=== PATIENT | male | born 1960 | race Caucasian/White ===

== ENCOUNTER 2020-03-07 09:39 | Emergency (ER) | payer BC ==
[2020-03-07] MEDS ORDERED: MORPHINE SULFATE 4 MG INJ IV ONE ×2 (10:03→10:37)
[2020-03-07] MEDS ORDERED: Zofran 4 MG/2 ML VIAL IV ONE (10:03)
[2020-03-07] MEDS ORDERED: Sodium Chloride 0.9% 1000 ML 1,000 ML IV STA (10:03)
--- NOTE | 2020-03-07 10:05 | ERPHSYRPT ---
- History of Present Illness Time Seen by Provider: 03/07/20 10:00 Historian: patient Exam Limitations: no limitations Patient Subjective Stated Complaint: Pt states "About an hour and a half ago I started to have left side pain. I am nauseated as well." Triage Nursing Assessment: Pt presented alert and oriented X 3, skin pwd Pt ambulates with a slow hunched over gait. Pt vomited X 3, no apparent respiratory distress. Physician History: 59 years old male with history of hypertension presented in the ER with sudden onset left flank pain almost hour and a half ago after he finished urination and felt stinging/burning sensation at the tip of penis as well. Moderate to severe intensity, sharp shooting in nature, aggravated with movements and palpation and no significant relieving factors, associated with nausea and 3-4 episodes of nonprojectile, nonbilious vomiting. Patient does have a remote history of kidney stone. Denies any fever or chills. Timing/Duration: today, sudden, worse Quality: sharpness Abdominal Pain Onset Location: LLQ, flank Pain Radiation: no radiation Severity of Pain-Max: severe Severity of Pain-Current: severe Modifying Factors: Improves With: movement Associated Symptoms: nausea, vomiting Allergies/Adverse Reactions: Penicillins Allergy (Severe, Verified 03/07/20 09:58) Swelling Home Medications: Olmesartan Medoxomil 40 mg PO DAILY 03/07/20 [History] Zolpidem Tartrate 10 mg [Ambien 10 MG] 10 mg PO HS 03/07/20 [History] Hx Tetanus, Diphtheria Vaccination/Date Given: Yes Hx Influenza Vaccination/Date Given: No Hx Pneumococcal Vaccination/Date Given: No Immunizations Up to Date: Yes Travel Risk - International Travel Have you traveled outside of the country in past 3 weeks: No - Coronavirus Screening Are you exhibiting any of the following symptoms?: No Close contact with a COVID-19 positive Pt in past 14-21 Days: No - Review of Systems Constitutional: No Symptoms Eyes: No Symptoms Ears, Nose, & Throat: No Symptoms Respiratory: No Symptoms Cardiac: No Symptoms Abdominal/Gastrointestinal: Abdominal Pain, Nausea, Vomiting Genitourinary Symptoms: No Symptoms Musculoskeletal: No Symptoms Neurological: No Symptoms Psychological: No Symptoms Endocrine: No Symptoms Hematologic/Lymphatic: No Symptoms Immunological/Allergic: No Symptoms - Past Medical History Pertinent Past Medical History: Yes Cardiac History: Hypertension - Past Surgical History Past Surgical History: Yes Other Surgical History: left knee - Social History Smoking Status: Former smoker Exposure to second hand smoke: No Drug Use: none Patient Lives Alone: No - Nursing Vital Signs Nursing Vital Signs: Initial Vital Signs Temperature 98.0 F 03/07/20 09:50 Pulse Rate 58 L 03/07/20 09:50 Respiratory Rate 24 03/07/20 09:50 Blood Pressure 176/90 03/07/20 09:50 O2 Sat by Pulse Oximetry 98 03/07/20 09:50 Pain Scale Pain Intensity 4 - Physical Exam General Appearance: no apparent distress, alert Eye Exam: eyes nml inspection Ears, Nose, Throat Exam: normal ENT inspection, pharyngeal erythema Neck Exam: normal inspection, supple, full range of motion Respiratory Exam: normal breath sounds, lungs clear Cardiovascular Exam: regular rate/rhythm, normal heart sounds Gastrointestinal/Abdomen Exam: soft, normal bowel sounds, tenderness (Left flank /left lower quadrant) Back Exam: normal inspection, normal range of motion, CVA tenderness Extremity Exam: normal inspection Neurologic Exam: alert, oriented x 3, cooperative, 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 Skin Exam: normal color SpO2 Interpretation: normal SpO2: 98 O2 Delivery: Room Air Ordered Tests: Active Orders 24 hr Category Date Time Status IV Insertion STAT Care 03/07/20 10:03 Active ABDOMEN AND PELVIS W/0 CONTRAS [CT] Stat Exams 03/07/20 10:03 Completed CBC W DIFF Stat Lab 03/07/20 10:10 Completed CMP Stat Lab 03/07/20 10:10 Completed LIPASE Stat Lab 03/07/20 10:10 Completed UA W/RFX UR CULTURE Stat Lab 03/07/20 10:10 Completed Medication Summary Discontinued Medications Generic Name Dose Route Start Last Admin Trade Name Freq PRN Reason Stop Dose Admin Sodium Chloride 1,000 mls @ 999 mls/hr 03/07/20 10:03 03/07/20 11:13 Sodium Chloride 0.9% 1000 Ml IV 03/07/20 11:03 Infused .Q1H1M STA Infusion Sodium Chloride Confirm 03/07/20 10:08 Sodium Chloride 0.9% 1000 Ml Administered 03/07/20 10:09 Dose 1,000 mls @ ud .ROUTE .STK-MED ONE Ketorolac Tromethamine Confirm 03/07/20 10:18 Toradol 30 Mg Injection Administered 03/07/20 10:19 Dose 30 mg .ROUTE .STK-MED ONE Ketorolac Tromethamine 30 mg 03/07/20 11:02 03/07/20 10:20 Toradol 30 Mg Injection IV 03/07/20 11:03 30 mg STAT ONE Administration Morphine Sulfate 4 mg 03/07/20 10:03 03/07/20 10:11 Morphine Sulfate 4 Mg Inj IV 03/07/20 10:04 4 mg STAT ONE Administration Morphine Sulfate Confirm 03/07/20 10:08 Morphine Sulfate 4 Mg Inj Administered 03/07/20 10:09 Dose 4 mg .ROUTE .STK-MED ONE Morphine Sulfate Confirm 03/07/20 10:34 Morphine Sulfate 4 Mg Inj Administered 03/07/20 10:35 Dose 4 mg .ROUTE .STK-MED ONE Morphine Sulfate 4 mg 03/07/20 10:37 03/07/20 10:45 Morphine Sulfate 4 Mg Inj IV 03/07/20 10:38 4 mg STAT ONE Administration Ondansetron HCl 4 mg 03/07/20 10:03 03/07/20 10:11 Zofran 4 Mg/2 Ml Vial IV 03/07/20 10:04 4 mg STAT ONE Administration Ondansetron HCl Confirm 03/07/20 10:08 Zofran 4 Mg/2 Ml Vial Administered 03/07/20 10:09 Dose 4 mg .ROUTE .STK-MED ONE Lab/Rad Data: Laboratory Result Diagrams 03/07/20 10:10 03/07/20 10:10 Laboratory Results 03/07/20 03/07/20 03/07/20 Range/Units 10:10 10:10 10:10 WBC 9.4 (4.0-10.5) K/mm3 RBC 4.79 (4.1-5.6) M/mm3 Hgb 15.4 (12.5-18.0) gm/dl Hct 44.5 (42-50) % MCV 92.9 (78-100) fl MCH 32.2 H (26-32) pg MCHC 34.6 (32-36) g/dl RDW 12.8 (11.5-14.0) % Plt Count 226 (150-450) K/mm3 MPV 9.6 (7.5-11.0) fl Gran % 38.2 (36.0-66.0) % Eos # (Auto) 0.08 (0-0.5) Absolute Lymphs (auto) 4.91 H (1.0-4.6) Absolute Monos (auto) 0.83 (0.0-1.3) Lymphocytes % 52.0 H (24.0-44.0) % Monocytes % 8.8 (0.0-12.0) % Eosinophils % 0.8 (0.00-5.0) % Basophils % 0.2 (0.0-0.4) % Absolute Granulocytes 3.60 (1.4-6.9) Basophils # 0.02 (0-0.4) Sodium 140 (137-145) mmol/L Potassium 3.8 (3.5-5.1) mmol/L Chloride 105 (98-107) mmol/L Carbon Dioxide 23 (22-30) mmol/L Anion Gap 16.2 H (5-15) MEQ/L BUN 25 H (9-20) mg/dL Creatinine 1.24 (0.66-1.25) mg/dL Estimated GFR > 60.0 ML/MIN Glucose 154 H (74-106) mg/dL Calcium 9.8 (8.4-10.2) mg/dL Total Bilirubin 1.00 (0.2-1.3) mg/dL AST 38 (17-59) U/L ALT 32 (0-50) U/L Alkaline Phosphatase 73 (38-126) U/L Serum Total Protein 8.0 (6.3-8.2) g/dL Albumin 4.6 (3.5-5.0) g/dL Lipase 142 (23-300) U/L Urine Color YELLOW (YELLOW) Urine Appearance SLIGHTLY CLOUDY (CLEAR) Urine pH 5.0 (5-6) Ur Specific [place] 1.024 (1.005-1.025) Urine Protein NEGATIVE (Negative) Urine Ketones NEGATIVE (NEGATIVE) Urine Blood NEGATIVE (0-5) Jas/ul Urine Nitrite NEGATIVE (NEGATIVE) Urine Bilirubin NEGATIVE (NEGATIVE) Urine Urobilinogen NEGATIVE (0-1) mg/dL Ur Leukocyte Esterase NEGATIVE (NEGATIVE) Urine WBC (Auto) NONE (0-5) /HPF Urine RBC (Auto) NONE (0-2) /HPF U Epithel Cells (Auto) NONE (FEW) /HPF Urine Bacteria (Auto) NONE (NEGATIVE) /HPF Urine Mucus (Auto) SLIGHT (NEGATIVE) /HPF Urine Culture Reflexed NO (NO) Urine Glucose NEGATIVE (NEGATIVE) mg/dL - Progress Progress: improved, re-examined Progress Note: 03/07/20 12:08 59 years old is evaluated for left flank pain. He is given IV fluid and pain medications, on reevaluation his pain is completely gone on no tenderness at all. Has normal white count, grossly unremarkable chemistries. I have obtained CT abdomen pelvis which showed recently passed stone and patient did confirm that on arrival in the ER he felt some stone in his penis and probably passed it. He did pass a stone earlier this morning as well. Patient does have a urologist Dr. Lorenzo at [place] which he would follow-up with. I would give him a few pain pills to go home to take as needed. At this point I do not think patient needs any further work-up and is stable for discharge. Counseled pt/family regarding: lab results, diagnosis, need for follow-up, rad results - Departure Departure Disposition: Home Clinical Impression: Ureterolithiasis Condition: Stable Critical Care Time: No Referrals: DOCTOR,NO FAMILY [Primary Care Provider] - ARTURO SIMEON MD [ACTIVE STAFF] - (1-2 days for re evaluation) NANDO LORENZO [NON-STAFF PHY W/O PRIVILEGES] - (1-2 days for re evaluation) Instructions: Kidney Stones (DC) Additional Instructions: Drink plenty of fluids. Take pain medications as needed. Follow-up with primary care and your urologist for reevaluation. Return to ER for intractable pain/vomiting/fever chills etc. Prescriptions: Hydrocodone/APAP 5-325 Tab^^^ [[place] 5-325 Tablet^^^] 1 tab PO Q6HPRN PRN #10 tablet MDD 6 PRN Reason: Pain Tamsulosin HCl 0.4 mg [Flomax 0.4 MG] 0.4 mg PO DAILY 30 Days #30 cap
[2020-03-07] MEDS ORDERED: MORPHINE SULFATE 4 MG INJ ONE ×2 (10:08→10:34)
[2020-03-07] MEDS ORDERED: Zofran 4 MG/2 ML VIAL ONE (10:08)
[2020-03-07] MEDS ORDERED: Sodium Chloride 0.9% 1000 ML 1,000 ML ONE (10:08)
[2020-03-07 10:18] LABS: BASOPHIL % 0.2 % (0.0-0.4); Basophil (Absolute #) 0.02 (0-0.4); Eosinophil % 0.8 % (0.00-5.0); Eosinophil (Absolute #) 0.08 (0-0.5); Hematocrit 44.5 % (42-50); Hemoglobin 15.4 gm/dl (12.5-18.0); Lymphocyte (Absolute #) 4.91 (1.0-4.6); Mean Cell Volume 92.9 fl (78-100); Mean Corpuscular Hemoglobin 32.2 pg (26-32); Mean Corpuscular Hgb Concent. 34.6 g/dl (32-36); Mean Platelet Volume 9.6 fl (7.5-11.0); Monocyte (Absolute #) 0.83 (0.0-1.3); Monocytes % 8.8 % (0.0-12.0); Neutrophil % 38.2 % (36.0-66.0); Platelet Count 226 K/mm3 (150-450); Red Blood Count 4.79 M/mm3 (4.1-5.6); Red Cell Distribution Width 12.8 % (11.5-14.0); White Blood Count 9.4 K/mm3 (4.0-10.5)
[2020-03-07] MEDS ORDERED: TORAdol 30 mg Injection ONE (10:18)
[2020-03-07 10:34] LABS: Appearance SLIGHTLY CLOUDY (CLEAR); Bilirubin NEGATIVE (NEGATIVE); Blood NEGATIVE Ery/ul (0-5); Glucose NEGATIVE (NEGATIVE); Ketones NEGATIVE (NEGATIVE); Leukocyte Esterase NEGATIVE (NEGATIVE); Mucus SLIGHT /HPF (NEGATIVE); Nitrite NEGATIVE (NEGATIVE); Protein,Urine Dip NEGATIVE (Negative); Specific Gravity 1.024 (1.005-1.025); Urobilinogen NEGATIVE mg/dL (0-1)
[2020-03-07 10:47] LABS: ALBUMIN 4.6 g/dL (3.5-5.0); ALKALINE PHOSPHATASE 73 U/L (38-126); ANION GAP 16.2 MEQ/L (5-15); BLOOD UREA NITROGEN 25 mg/dL (9-20); CHLORIDE 105 mmol/L (98-107); Calcium 9.8 mg/dL (8.4-10.2); Carbon Dioxide 23 mmol/L (22-30); Creatinine 1 1.24 mg/dL (0.66-1.25); Glucose 154 mg/dL (74-106); LIPASE 142 U/L (23-300); Potassium 3.8 mmol/L (3.5-5.1); SGOT/AST 38 U/L (17-59); SGPT/ALT 32 U/L (0-50); SODIUM 140 mmol/L (137-145)
[2020-03-07] MEDS ORDERED: TORAdol 30 mg Injection IV ONE (11:02)
--- NOTE | 2020-03-07 11:54 | XRAY ---
Exam: CT of the abdomen and pelvis without IV contrast from 03/07/2020. CTDI: 20.80 mGy Comparison: None. Indication: 59-year-old male with acute onset of left flank pain this morning, history of kidney stones, prior prostatectomy, and "hernia repair" surgery. Findings: Non-IV contrast axial images were obtained through the abdomen and pelvis. Reconstructed coronal and sagittal images were created and reviewed. Findings: Scattered bilateral renal calculi are seen. Although I see no definite hydronephrosis, there is obvious asymmetric left perirenal stranding. I also note some periureteral stranding about the distal left ureter within the mid pelvis. However, a ureteral stone is not seen on the left. I do note a small calcification measuring about 3.7 mm in diameter at the upper posterior aspect of the urinary bladder near the midline which probably represents a recently passed left ureteral stone. See axial images #100 and #101, as well as sagittal image #125. The lung bases appear clear. The transverse heart size is normal. There is some mild geographical low-attenuation within the liver, particularly the right lobe. This may be due to geographical fatty infiltration (i.e. steatosis). Evaluation on a non-IV contrast study is limited. Correlate clinically as to whether further investigation with a post-IV contrast study is needed. Spleen is not enlarged. No splenic mass is seen. The pancreas and adrenal glands appear unremarkable. The gallbladder is partially distended and appears grossly unremarkable without calcifications within it. No intrahepatic or extrahepatic biliary duct distention is seen. Mild atherosclerotic vascular calcification is seen within the abdominal aorta and proximal iliac arteries. No abdominal aortic aneurysm or abnormal retroperitoneal lymphadenopathy is seen. There is no free intraperitoneal air. The anterior abdominal wall appears intact. I see no findings to suggest acute appendicitis within the right lower quadrant. Scattered stool is seen throughout nondilated colon. No obvious bowel wall thickening is seen. No discrete pelvic mass or enlarged pelvic lymph nodes are seen. The urinary bladder is only minimally distended. The prostate gland is surgically absent. There is no free fluid. The skeleton reveals no acute fracture or aggressive bone lesion. Multilevel degenerative disc disease is seen throughout the lumbar spine. This is most pronounced at L4-L5 and L5-S1. Facet joint arthropathy is seen at L5-S1, and to a lesser extent, L4-L5. Degenerative changes compromise the left L5-S1 neural foramen. Impression: 1. There is a 3.7 mm round calcification at the upper posterior margin of the urinary bladder near the midline which I believe represents a recently passed left ureteral stone. Asymmetric left perirenal and distal left periureteral stranding is seen, although no stone is seen within the projection of the left ureter at this time. I do note multiple scattered nonobstructing stones within each kidney. 2. There is a moderately large geographical area of low attenuation within the right lobe of the liver which likely represents geographical fatty infiltration (i.e. steatosis). Correlate clinically as to whether further investigation with a post-IV contrast CT of the abdomen is needed. 3. The patient is status post prostatectomy. No other acute process is seen within the abdomen or pelvis.
[2020-03-07 12:13] VITALS: BP 136/85; PULSE 88; O2SAT 98
== END 2020-03-07 12:25 | disposition home or self-care (01) ==
LOC: ED 09:39
DX: N20.1 Calculus of ureter (principal); I10 Essential (primary) hypertension; R10.32 Left lower quadrant pain; Z87.442 Personal history of urinary calculi; Z79.899 Other long term (current) drug therapy
CPT/HCPCS: 36000; 36415; 74176; 80053; 81001; 83690; 85025; 96360; 96374; 96375; 96376; 99284; J1885; J2270; J2405

== ENCOUNTER 2021-07-01 00:40 | Emergency (ER) | payer BC ==
--- NOTE | 2021-07-01 01:10 | ERPHSYRPT ---
- History of Present Illness Time Seen by Provider: 07/01/21 01:05 Source: patient Exam Limitations: no limitations Physician History: This is a 60-year-old overweight white male has a history of hypertension and prostate issues who 1 week ago began having some weakness, cough headache and body aches. Approximately 2 days later he had near syncope episode and dizzines s. He sought medical attention and a COVID-19 test was taken. , prior to this admission into the emergency department, patient found out he was Covid positive. Patient has been eating and drinking. He has not noticed any fevers. However he has a low level of nausea dizziness, headache and body aches. He has not had any vomiting or diarrhea. He denies chest pain he denies shortness of breath. He denies abdominal pain. He became concerned today when approximately 1 to 1/2 hours ago, he had 2 near syncopal episodes. Timing/Duration: week(s) (1) Severity: moderate Associated Symptoms: nausea, cough, headaches, syncope, weakness, No vomiting, No abdominal pain, No shortness of breath, No chest pain Allergies/Adverse Reactions: Penicillins Allergy (Severe, Verified 03/07/20 09:58) Swelling Home Medications: Zolpidem Tartrate 10 mg [Ambien 10 MG] 10 mg PO HS PRN PRN 03/07/20 [History] Meloxicam 7.5 mg PO DAILY 07/01/21 [History] Olmesartan/Hydrochlorothiazide [Olmesartan-Hctz 40-12.5 mg Tab] 1 each PO DAILY 07/01/21 [History] Phentermine HCl [Adipex-P] 0.5 tab PO BID 07/01/21 [History] Hx Tetanus, Diphtheria Vaccination/Date Given: Yes Hx Influenza Vaccination/Date Given: No Hx Pneumococcal Vaccination/Date Given: No Travel Risk - International Travel Have you traveled outside of the country in past 3 weeks: No - Coronavirus Screening Are you exhibiting any of the following symptoms?: Yes Symptoms: Cough: New Onset, Headaches/Body Aches/Fatigue Close contact with a COVID-19 positive Pt in past 14-21 Days: Yes - Review of Systems Constitutional: Weakness Eyes: No Symptoms Ears, Nose, & Throat: No Symptoms Respiratory: No Symptoms Cardiac: No Symptoms Abdominal/Gastrointestinal: Nausea, No Abdominal Pain, No Vomiting, No Diarrhea, No Appetite Changes Genitourinary Symptoms: No Symptoms Musculoskeletal: Arthralgias, Myalgias Skin: No Symptoms Neurological: Dizziness, Headache Psychological: No Symptoms Endocrine: No Symptoms Hematologic/Lymphatic: No Symptoms Immunological/Allergic: No Symptoms All Other Systems: Reviewed and Negative - Past Medical History Pertinent Past Medical History: Yes Cardiac History: Hypertension - Past Surgical History Past Surgical History: Yes Other Surgical History: left knee - Social History Smoking Status: Former smoker Exposure to second hand smoke: No Drug Use: none Patient Lives Alone: No - Nursing Vital Signs Nursing Vital Signs: Initial Vital Signs Temperature 99.3 F 07/01/21 01:04 Pulse Rate 82 07/01/21 01:04 Respiratory Rate 18 07/01/21 01:04 Blood Pressure 107/68 07/01/21 01:04 O2 Sat by Pulse Oximetry 95 07/01/21 01:04 Pain Scale Pain Intensity 0 - Physical Exam General Appearance: no apparent distress, alert, anxiety, obese Eye Exam: PERRL/EOMI, eyes nml inspection Ears, Nose, Throat Exam: normal ENT inspection, moist mucous membranes Neck Exam: normal inspection, non-tender, supple, full range of motion Respiratory Exam: normal breath sounds, lungs clear, airway intact, No chest tenderness, No respiratory distress Cardiovascular Exam: regular rate/rhythm, normal heart sounds, normal peripheral pulses Gastrointestinal/Abdomen Exam: soft, normal bowel sounds, No tenderness Rectal Exam: not done Back Exam: normal inspection, normal range of motion, No CVA tenderness, No vertebral tenderness Extremity Exam: normal inspection, normal range of motion, pelvis stable Neurologic Exam: alert, oriented x 3, cooperative, international trade manager II-XII nml as tested, normal mood/affect, nml cerebellar function, nml station & gait, sensation nml Skin Exam: normal color, warm, dry Lymphatic Exam: No adenopathy SpO2 Interpretation: normal O2 Delivery: Room Air - Course Nursing assessment & vital signs reviewed: Yes EKG Interpreted by Me: RATE (80), Sinus Rhythm, NORMAL AXIS, NORMAL INTERVALS, NORMAL QRS, NORMAL ST-T, Other (No acute ischemic changes on today's EKG. No comparison EKG available.) Ordered Tests: Active Orders 24 hr Category Date Time Status Rn Production STAT Care 07/01/21 01:11 Active Clean Catch Urine Specimen STAT Care 07/01/21 01:09 Active EKG-ER Only STAT Care 07/01/21 01:09 Active IV Insertion STAT Care 07/01/21 01:09 Active CHEST 1 VIEW (PORTABLE) Stat Exams 07/01/21 01:11 Taken HEAD WITHOUT CONTRAST [CT] Stat Exams 07/01/21 01:10 Taken BLOOD CULTURE Stat Lab 07/01/21 01:40 Received CBC W DIFF Stat Lab 07/01/21 01:20 Completed CMP Stat Lab 07/01/21 01:20 Completed ETHYL ALCOHOL Stat Lab 07/01/21 01:20 Completed INFLUENZA A+B DANK Stat Lab 07/01/21 01:40 Completed MAGNESIUM Stat Lab 07/01/21 01:20 Completed Manual Differential NC Stat Lab 07/01/21 01:20 Completed Terry Screen Stat Lab 07/01/21 01:20 Completed POTASSIUM, URINE RANDOM Stat Lab 07/01/21 Ordered PROTIME WITH INR Stat Lab 07/01/21 01:20 Completed Sodium, Urine Stat Lab 07/01/21 Ordered UA W/RFX UR CULTURE Stat Lab 07/01/21 02:22 Completed Urine Triage Profile Stat Lab 07/01/21 02:22 Completed Medication Summary Generic Name Dose Route Start Last Admin Trade Name Freq PRN Reason Stop Dose Admin Sodium Chloride 1,000 mls @ 100 mls/hr 07/01/21 01:15 07/01/21 03:11 Sodium Chloride 0.9% 1000 Ml IV 07/31/21 01:14 Infused .Q10H YANCI Infusion Discontinued Medications Generic Name Dose Route Start Last Admin Trade Name Freq PRN Reason Stop Dose Admin Sodium Chloride 500 mls @ 500 mls/hr 07/01/21 03:03 07/01/21 04:23 Sodium Chloride 0.9% 500 Ml IV 07/01/21 04:02 Infused .Q1H ONE Infusion Sodium Chloride Confirm 07/01/21 03:10 Sodium Chloride 0.9% 500 Ml Administered 07/01/21 03:11 Dose 500 mls @ ud IV .STK-MED ONE Morphine Sulfate 2 mg 07/01/21 01:23 07/01/21 01:32 Morphine Sulfate 2 Mg Inj IV 07/01/21 01:24 2 mg STAT ONE Administration Morphine Sulfate Confirm 07/01/21 01:28 Morphine Sulfate 2 Mg Inj Administered 07/01/21 01:29 Dose 2 mg .ROUTE .STK-MED ONE Ondansetron HCl 4 mg 07/01/21 01:23 07/01/21 01:33 Zofran 4 Mg/2 Ml Vial IV 07/01/21 01:24 4 mg STAT ONE Administration Ondansetron HCl Confirm 07/01/21 01:28 Zofran 4 Mg/2 Ml Vial Administered 07/01/21 01:29 Dose 4 mg .ROUTE .STK-MED ONE Lab/Rad Data: Laboratory Result Diagrams 07/01/21 01:20 07/01/21 01:20 Laboratory Results 07/01/21 07/01/21 07/01/21 Range/Units 02:22 02:22 01:40 WBC (4.0-10.5) K/mm3 RBC (4.1-5.6) M/mm3 Hgb (12.5-18.0) gm/dl Hct (42-50) % MCV (78-100) fl MCH (26-32) pg MCHC (32-36) g/dl RDW (11.5-14.0) % Plt Count (150-450) K/mm3 MPV (7.5-11.0) fl Segmented Neutrophils (36.-66.) % Band Neutrophils (0.0-2.0) % Lymphocytes (Manual) (24-44) % Monocytes (Manual) (0.0-12.0) % Atypical Lymphocytes % Platelet Estimate (NORMAL) RBC Morphology PT (9.4-12.5) SECONDS INR (0.8-3.0) Sodium (137-145) mmol/L Potassium (3.5-5.1) mmol/L Chloride (98-107) mmol/L Carbon Dioxide (22-30) mmol/L Anion Gap (5-15) MEQ/L BUN (9-20) mg/dL Creatinine (0.66-1.25) mg/dL Estimated GFR ML/MIN Glucose (74-106) mg/dL Calcium (8.4-10.2) mg/dL Magnesium (1.6-2.3) mg/dL Total Bilirubin (0.2-1.3) mg/dL AST (17-59) U/L ALT (0-50) U/L Alkaline Phosphatase (38-126) U/L Serum Total Protein (6.3-8.2) g/dL Albumin (3.5-5.0) g/dL Urine Color BRYCE (YELLOW) Urine Appearance SLIGHTLY CLOUDY (CLEAR) Urine pH 5.0 (5-6) Ur Specific Cross[place] 1.023 (1.005-1.025) Urine Protein 30 (Negative) Urine Ketones NEGATIVE (NEGATIVE) Urine Blood NEGATIVE (0-5) Jas/ul Urine Nitrite NEGATIVE (NEGATIVE) Urine Bilirubin NEGATIVE (NEGATIVE) Urine Urobilinogen NEGATIVE (0-1) mg/dL Ur Leukocyte Esterase NEGATIVE (NEGATIVE) Urine WBC (Auto) 3-5 (0-5) /HPF Urine RBC (Auto) 0-2 (0-2) /HPF U Hyaline Cast (Auto) 0-2 (0-2) /LPF U Epithel Cells (Auto) NONE (FEW) /HPF Urine Bacteria (Auto) FEW (NEGATIVE) /HPF Urine Mucus (Auto) MANY (NEGATIVE) /HPF Urine Culture Reflexed NO (NO) Urine Glucose NEGATIVE (NEGATIVE) mg/dL Urine Opiates Level POSITIVE (NEGATIVE) Ur Methadone NEGATIVE (NEGATIVE) Urine Barbiturates NEGATIVE (NEGATIVE) Ur Phencyclidine (PCP) NEGATIVE (NEGATIVE) Urine Amphetamine NEGATIVE (NEGATIVE) U Benzodiazepine Level NEGATIVE (NEGATIVE) Urine Cocaine NEGATIVE (NEGATIVE) Urine Marijuana (THC) NEGATIVE (NEGATIVE) Ethyl Alcohol (0-10) mg/dL Monoscreen (Negative) Influenza Type A Ag NEGATIVE (NEGATIVE) Influenza Type B Ag NEGATIVE (NEGATIVE) 07/01/21 07/01/21 07/01/21 Range/Units 01:20 01:20 01:20 WBC (4.0-10.5) K/mm3 RBC (4.1-5.6) M/mm3 Hgb (12.5-18.0) gm/dl Hct (42-50) % MCV (78-100) fl MCH (26-32) pg MCHC (32-36) g/dl RDW (11.5-14.0) % Plt Count (150-450) K/mm3 MPV (7.5-11.0) fl Segmented Neutrophils (36.-66.) % Band Neutrophils (0.0-2.0) % Lymphocytes (Manual) (24-44) % Monocytes (Manual) (0.0-12.0) % Atypical Lymphocytes % Platelet Estimate (NORMAL) RBC Morphology PT 12.6 H (9.4-12.5) SECONDS INR 1.07 (0.8-3.0) Sodium 128 L (137-145) mmol/L Potassium 4.4 (3.5-5.1) mmol/L Chloride 94 L (98-107) mmol/L Carbon Dioxide 28 (22-30) mmol/L Anion Gap 10.4 (5-15) MEQ/L BUN 17 (9-20) mg/dL Creatinine 1.19 (0.66-1.25) mg/dL Estimated GFR > 60.0 ML/MIN Glucose 139 H (74-106) mg/dL Calcium 8.4 (8.4-10.2) mg/dL Magnesium 1.8 (1.6-2.3) mg/dL Total Bilirubin 0.80 (0.2-1.3) mg/dL AST 149 H (17-59) U/L ALT 108 H (0-50) U/L Alkaline Phosphatase 52 (38-126) U/L Serum Total Protein 6.9 (6.3-8.2) g/dL Albumin 3.9 (3.5-5.0) g/dL Urine Color (YELLOW) Urine Appearance (CLEAR) Urine pH (5-6) Ur Specific Crossroads (1.005-1.025) Urine Protein (Negative) Urine Ketones (NEGATIVE) Urine Blood (0-5) Jas/ul Urine Nitrite (NEGATIVE) Urine Bilirubin (NEGATIVE) Urine Urobilinogen (0-1) mg/dL Ur Leukocyte Esterase (NEGATIVE) Urine WBC (Auto) (0-5) /HPF Urine RBC (Auto) (0-2) /HPF U Hyaline Cast (Auto) (0-2) /LPF U Epithel Cells (Auto) (FEW) /HPF Urine Bacteria (Auto) (NEGATIVE) /HPF Urine Mucus (Auto) (NEGATIVE) /HPF Urine Culture Reflexed (NO) Urine Glucose (NEGATIVE) mg/dL Urine Opiates Level (NEGATIVE) Ur Methadone (NEGATIVE) Urine Barbiturates (NEGATIVE) Ur Phencyclidine (PCP) (NEGATIVE) Urine Amphetamine (NEGATIVE) U Benzodiazepine Level (NEGATIVE) Urine Cocaine (NEGATIVE) Urine Marijuana (THC) (NEGATIVE) Ethyl Alcohol < 10 (0-10) mg/dL Monoscreen NEGATIVE (Negative) Influenza Type A Ag (NEGATIVE) Influenza Type B Ag (NEGATIVE) 07/01/21 Range/Units 01:20 WBC 4.6 (4.0-10.5) K/mm3 RBC 4.90 (4.1-5.6) M/mm3 Hgb 15.5 (12.5-18.0) gm/dl Hct 45.5 (42-50) % MCV 92.9 (78-100) fl MCH 31.6 (26-32) pg MCHC 34.1 (32-36) g/dl RDW 12.9 (11.5-14.0) % Plt Count 138 L (150-450) K/mm3 MPV 9.5 (7.5-11.0) fl Segmented Neutrophils 47 (36.-66.) % Band Neutrophils 3 H (0.0-2.0) % Lymphocytes (Manual) 29 (24-44) % Monocytes (Manual) 7 (0.0-12.0) % Atypical Lymphocytes 14 % Platelet Estimate NORMAL (NORMAL) RBC Morphology NORMAL PT (9.4-12.5) SECONDS INR (0.8-3.0) Sodium (137-145) mmol/L Potassium (3.5-5.1) mmol/L Chloride (98-107) mmol/L Carbon Dioxide (22-30) mmol/L Anion Gap (5-15) MEQ/L BUN (9-20) mg/dL Creatinine (0.66-1.25) mg/dL Estimated GFR ML/MIN Glucose (74-106) mg/dL Calcium (8.4-10.2) mg/dL Magnesium (1.6-2.3) mg/dL Total Bilirubin (0.2-1.3) mg/dL AST (17-59) U/L ALT (0-50) U/L Alkaline Phosphatase (38-126) U/L Serum Total Protein (6.3-8.2) g/dL Albumin (3.5-5.0) g/dL Urine Color (YELLOW) Urine Appearance (CLEAR) Urine pH (5-6) Ur Specific Crossroads (1.005-1.025) Urine Protein (Negative) Urine Ketones (NEGATIVE) Urine Blood (0-5) Jas/ul Urine Nitrite (NEGATIVE) Urine Bilirubin (NEGATIVE) Urine Urobilinogen (0-1) mg/dL Ur Leukocyte Esterase (NEGATIVE) Urine WBC (Auto) (0-5) /HPF Urine RBC (Auto) (0-2) /HPF U Hyaline Cast (Auto) (0-2) /LPF U Epithel Cells (Auto) (FEW) /HPF Urine Bacteria (Auto) (NEGATIVE) /HPF Urine Mucus (Auto) (NEGATIVE) /HPF Urine Culture Reflexed (NO) Urine Glucose (NEGATIVE) mg/dL Urine Opiates Level (NEGATIVE) Ur Methadone (NEGATIVE) Urine Barbiturates (NEGATIVE) Ur Phencyclidine (PCP) (NEGATIVE) Urine Amphetamine (NEGATIVE) U Benzodiazepine Level (NEGATIVE) Urine Cocaine (NEGATIVE) Urine Marijuana (THC) (NEGATIVE) Ethyl Alcohol (0-10) mg/dL Monoscreen (Negative) Influenza Type A Ag (NEGATIVE) Influenza Type B Ag (NEGATIVE) - Progress Progress: improved, re-examined Progress Note: 07/01/21 04:02 CAT scan of the head without contrast shows no intracranial abnormality 07/01/21 04:28 Medical decision making: This patient has COVID-19 infection that he recently found out about. In addition he has mild low sodium level. Also, with further discussion, the patient states that he has been trying to lose weight and he has lost 40 pounds in the last 2 months. This significant amount weight loss may have improved his blood pressure yet he is still taking blood pressure medicine. All 3 of these could be causes of his dizziness and headache levels. Patient states that he feels better but is a little weak. However, he is fighting a viral infection. We did walk him up and down the vargas and he did well. He wants to go home. I did offer him admission into the hospital but he declines at this time. He will hold his blood pressure medicine and monitor his blood pr essure for couple readings each morning before he takes his blood pressure medication. He will add some salt to his diet. He will also call his primary care physician today to make arranges for follow-up appointment. He will return to the emergency department if symptoms worsen Counseled pt/family regarding: lab results, diagnosis, need for follow-up, rad results - Departure Departure Disposition: Home Clinical Impression: Hyponatremia, COVID-19 virus infection Condition: Stable Critical Care Time: No Referrals: DOCTOR,NO FAMILY [NON-STAFF PHY W/O PRIVILEGES] - Additional Instructions: Drink plenty fluids. Call your primary care doctor today to make arrangements for follow-up appointment and tell them of your visit today in the emergency department.. May add some salt to your diet. Take at least 2 blood pressure readings each morning before you make the decision to take your blood pressure medication. Repeat a blood pressure reading in the early evening hours each day. Keep a daily log of your blood pressure readings for 5 days. Return to the emergency department symptoms worsen. Continue quarantine yourself.
[2021-07-01] MEDS ORDERED: Sodium Chloride 0.9% 1000 ML 1,000 ML IV SCH (01:15)
[2021-07-01] MEDS ORDERED: MORPHINE SULFATE 2 MG INJ IV ONE (01:23)
[2021-07-01] MEDS ORDERED: Zofran 4 MG/2 ML VIAL IV ONE (01:23)
[2021-07-01 01:24] LABS: Hematocrit 45.5 % (42-50); Hemoglobin 15.5 gm/dl (12.5-18.0); Mean Cell Volume 92.9 fl (78-100); Mean Corpuscular Hemoglobin 31.6 pg (26-32); Mean Corpuscular Hgb Concent. 34.1 g/dl (32-36); Mean Platelet Volume 9.5 fl (7.5-11.0); Platelet Count 138 K/mm3 (150-450); Red Cell Distribution Width 12.9 % (11.5-14.0); White Blood Count 4.6 K/mm3 (4.0-10.5)
[2021-07-01] MEDS ORDERED: Zofran 4 MG/2 ML VIAL ONE (01:28)
[2021-07-01] MEDS ORDERED: Sodium Chloride 0.9% 1000 ML 1,000 ML ONE (01:28)
[2021-07-01] MEDS ORDERED: MORPHINE SULFATE 2 MG INJ ONE (01:28)
[2021-07-01 01:31] LABS: INR 1.07 (0.8-3.0); PROTIME 12.6 SECONDS (9.4-12.5)
[2021-07-01 01:36] LABS: ALBUMIN 3.9 g/dL (3.5-5.0); ALKALINE PHOSPHATASE 52 U/L (38-126); ANION GAP 10.4 MEQ/L (5-15); BLOOD UREA NITROGEN 17 mg/dL (9-20); CHLORIDE 94 mmol/L (98-107); Calcium 8.4 mg/dL (8.4-10.2); Carbon Dioxide 28 mmol/L (22-30); Creatinine 1 1.19 mg/dL (0.66-1.25); EST GLOMERULAR FILTRATION RATE > 60.0 ML/MIN; ETHYL ALCOHOL < 10 mg/dL (0-10); Glucose 139 mg/dL (74-106); MAGNESIUM 1.8 mg/dL (1.6-2.3); Potassium 4.4 mmol/L (3.5-5.1); SGOT/AST 149 U/L (17-59); SGPT/ALT 108 U/L (0-50); SODIUM 128 mmol/L (137-145); Total Protein 6.9 g/dL (6.3-8.2)
[2021-07-01 01:55] LABS: ATYPICAL LYMPHS 14 %; BAND 3 % (0.0-2.0); Lymphocytes 29 % (24-44); Monocyte 7 % (0.0-12.0); Neutrophils 47 % (36.-66.); Platelet Estimate NORMAL (NORMAL); Total Cells Counted 100
[2021-07-01 01:59] LABS: INFLUENZA A NEGATIVE (NEGATIVE); INFLUENZA B NEGATIVE (NEGATIVE)
[2021-07-01 02:39] LABS: Appearance SLIGHTLY CLOUDY (CLEAR); Bacteria FEW /HPF (NEGATIVE); Bilirubin NEGATIVE (NEGATIVE); Blood NEGATIVE Ery/ul (0-5); Glucose NEGATIVE (NEGATIVE); Hyaline Casts 0-2 /LPF (0-2); Ketones NEGATIVE (NEGATIVE); Leukocyte Esterase NEGATIVE (NEGATIVE); Mucus MANY /HPF (NEGATIVE); Nitrite NEGATIVE (NEGATIVE); Protein,Urine Dip 30 (Negative); RBC 0-2 /HPF (0-2); Specific Gravity 1.023 (1.005-1.025); Urobilinogen NEGATIVE mg/dL (0-1)
[2021-07-01 02:46] LABS: Amphetamine,Urine NEGATIVE (NEGATIVE); Barbiturate,Urine NEGATIVE (NEGATIVE); Benzodiazepine,Urine NEGATIVE (NEGATIVE); Cocaine,Urine NEGATIVE (NEGATIVE); Methadone,Urine NEGATIVE (NEGATIVE); Opiate,Urine POSITIVE (NEGATIVE); PCP,Urine NEGATIVE (NEGATIVE); THC,Urine NEGATIVE (NEGATIVE)
[2021-07-01] MEDS ORDERED: Sodium Chloride 0.9% 500 ML 500 ML IV ONE ×2 (03:03→03:10)
[2021-07-01 03:09] VITALS: PULSE 75
[2021-07-01 04:08] VITALS: BP 104/60; O2SAT 93
[2021-07-01 04:49] LABS: POTASSIUM, URINE RANDOM 91.4 mmol/L; Sodium, Urine < 5 mmol/L (30-90)
--- NOTE | 2021-07-01 08:51 | XRAY ---
Indication: Syncope. Multiple contiguous axial images obtained through the head without contrast. Comparison: None Normal appearing brain parenchyma, ventricles, and bony calvarium for patient's age. Mild/moderate mucosal thickening floor of both maxillary sinuses. Mastoid air cells are clear. Impression: Negative CT head without contrast exam. Incidental paranasal sinus disease. Comment: Preliminary interpretation made by [facility]. No critical discrepancy.
--- NOTE | 2021-07-01 08:51 | XRAY ---
Indication: Syncope. Positive Covid 19. Comparison: None Portable chest demonstrates subtle patchy bilateral airspace disease without consolidation/large effusion. Heart and bony thorax unremarkable.
== END 2021-07-01 04:45 | disposition home or self-care (01) ==
LOC: ED 00:40
DX: E87.1 Hypo-osmolality and hyponatremia (principal); U07.1 COVID-19
CPT/HCPCS: 36000; 36415; 70450; 71045; 80053; 80307; 81001; 83735; 83935; 84133; 84300; 85025; 85610; 86308; 87040; 87400; 93005; 93041; 96360; 96374; 96375; 99285; J2270; J2405; G0480

== ENCOUNTER 2021-07-03 18:42 | Inpatient (IN) | payer BC ==
[2021-07-03] MEDS ORDERED: Zofran 4 MG/2 ML VIAL IV STA (19:23)
[2021-07-03] MEDS ORDERED: Sodium Chloride 0.9% 1000 ML 1,000 ML IV STA (19:23)
[2021-07-03] MEDS ORDERED: Zofran 4 MG/2 ML VIAL ONE (19:35)
[2021-07-03] MEDS ORDERED: Sodium Chloride 0.9% 1000 ML 1,000 ML ONE (19:35)
--- NOTE | 2021-07-03 19:58 | ERPHSYRPT ---
- History of Present Illness Time Seen by Provider: 07/03/21 19:00 Source: patient Exam Limitations: no limitations Patient Subjective Stated Complaint: PT states "I feel horrible, can't sleep, head and body hurts, my temp keeps going up and I take tylenol and ibuprofen but nothing seems to help." Triage Nursing Assessment: Pt presented alert and oriented X 3, skin wpd Pt ambulates with an upright steady gait, able to speak in clear full sentences. PT in no apparent respiratory distress. pt resting comfortably on the bed. Physician History: This is a 60-year-old white male whose primary care physician is in [facility] and he has known COVID-19 infection. He was seen here on 07/01/2021 and was diagnosed with COVID-19 infection symptoms, viral illness and had mild hyponatremia. At that time, the patient was told to hold his blood pressure medications only and make sure that he takes his blood pressure twice in the morning before taking his blood pressure medication. He was told to hold blood pressure medication if his systolic blood pressure was less than 120. He was also told to add salt into his diet. Patient, on his own, stated that he stopped all his medications. He was not instructed to do this. That included suddenly stopping his Ambien and Adipex. He complains of insomnia at this time. He also complains of fever to as high as 103 F. He arrives with a measured temperature of 99.7 F. He feels weak. He has been feeling persistently as of his brain is in a fog. CAT scan of the head without contrast was performed 2 days ago and was negative for any acute abnormality. Patient also had a negative mononucleosis spot test and negative influenza a and B test. Patient states that he does not feel comfortable being at home because he lives alone and he is a week, has fevers and is dizzy. Timing/Duration: day(s) (Several) Severity: mild ( to moderate) Associated Symptoms: nausea, loss of appetite, weakness, other (Insomnia), No vomiting, No abdominal pain, No shortness of breath, No chest pain Allergies/Adverse Reactions: Penicillins Allergy (Severe, Verified 03/07/20 09:58) Swelling Home Medications: Zolpidem Tartrate 10 mg [Ambien 10 MG] 10 mg PO HS PRN PRN 03/07/20 [History] Meloxicam 7.5 mg PO DAILY 07/01/21 [History] Olmesartan/Hydrochlorothiazide [Olmesartan-Hctz 40-12.5 mg Tab] 1 each PO DAILY 07/01/21 [History] Phentermine HCl [Adipex-P] 0.5 tab PO BID 07/01/21 [History] Hx Tetanus, Diphtheria Vaccination/Date Given: Yes Hx Influenza Vaccination/Date Given: No Hx Pneumococcal Vaccination/Date Given: No Immunizations Up to Date: Yes Travel Risk - International Travel Have you traveled outside of the country in past 3 weeks: No - Coronavirus Screening Are you exhibiting any of the following symptoms?: No Close contact with a COVID-19 positive Pt in past 14-21 Days: No - Vaccine Status Have you recieved a Covid-19 vaccination: No - Review of Systems Constitutional: Fever, Weakness Eyes: No Symptoms Ears, Nose, & Throat: No Symptoms Respiratory: No Symptoms Cardiac: No Symptoms Abdominal/Gastrointestinal: Nausea, No Abdominal Pain, No Vomiting, No Diarrhea Genitourinary Symptoms: No Symptoms Musculoskeletal: Arthralgias, Myalgias Neurological: Dizziness Psychological: No Symptoms, Other Endocrine: No Symptoms Hematologic/Lymphatic: No Symptoms Immunological/Allergic: No Symptoms All Other Systems: Reviewed and Negative - Past Medical History Pertinent Past Medical History: Yes Cardiac History: Hypertension - Past Surgical History Past Surgical History: Yes Other Surgical History: left knee - Social History Smoking Status: Former smoker Exposure to second hand smoke: No Drug Use: none Patient Lives Alone: No - Nursing Vital Signs Nursing Vital Signs: Initial Vital Signs Temperature 99.7 F 07/03/21 18:55 Pulse Rate 88 07/03/21 18:55 Respiratory Rate 22 07/03/21 18:55 Blood Pressure 131/75 07/03/21 18:55 O2 Sat by Pulse Oximetry 94 L 07/03/21 18:55 Pain Scale Pain Intensity 8 - Physical Exam General Appearance: no apparent distress, alert, anxiety Eye Exam: PERRL/EOMI, eyes nml inspection Ears, Nose, Throat Exam: normal ENT inspection, moist mucous membranes Neck Exam: normal inspection, non-tender, supple, full range of motion Respiratory Exam: normal breath sounds, lungs clear, airway intact, No chest tenderness, No respiratory distress Cardiovascular Exam: regular rate/rhythm, normal heart sounds, normal peripheral pulses Gastrointestinal/Abdomen Exam: soft, normal bowel sounds, No tenderness Rectal Exam: not done Back Exam: normal inspection, normal range of motion, No CVA tenderness, No vertebral tenderness Extremity Exam: normal inspection, normal range of motion, pelvis stable Neurologic Exam: alert, oriented x 3, cooperative, machine sprayer II-XII nml as tested, normal mood/affect, nml cerebellar function, nml station & gait, sensation nml Skin Exam: normal color, warm, dry Lymphatic Exam: No adenopathy SpO2 Interpretation: borderline oxygenation SpO2: 92 O2 Delivery: Room Air - Course Nursing assessment & vital signs reviewed: Yes EKG Interpreted by Me: RATE (79), Sinus Rhythm, NORMAL AXIS, NORMAL INTERVALS, NORMAL QRS, NORMAL ST-T, Other (There are no acute ischemic changes on today's EKG. There are no changes when compared to EKG dated 07/01/2021.) Ordered Tests: Active Orders 24 hr Category Date Time Status Oyster Unloader STAT Care 07/03/21 19:24 Active EKG-ER Only STAT Care 07/03/21 19:23 Active IV Insertion STAT Care 07/03/21 19:23 Active Pulse Oximetry (ED) STAT Care 07/03/21 19:23 Active CBC W DIFF Stat Lab 07/03/21 19:54 Completed CMP Stat Lab 07/03/21 19:54 Completed Lactic Acid Stat Lab 07/03/21 19:28 Completed Manual Differential NC Stat Lab 07/03/21 19:54 Completed T4 (Thyroxine) Stat Lab 07/03/21 20:00 Completed TROPONIN Q3H Lab 07/03/21 19:54 Completed TROPONIN Q3H Lab 07/03/21 22:30 Ordered TROPONIN Q3H Lab 07/04/21 01:30 Ordered TROPONIN Q3H Lab 07/04/21 04:30 Ordered TROPONIN Q3H Lab 07/04/21 07:30 Ordered TSH [TSH, 3RD Generation] Stat Lab 07/03/21 19:51 Completed UA W/RFX UR CULTURE Stat Lab 07/03/21 20:16 Completed Transfer Order Routine Transfer 07/03/21 Ordered Medication Summary Generic Name Dose Route Start Last Admin Trade Name Freq PRN Reason Stop Dose Admin Hydrocodone Bitart/Acetaminophen 10 ml 07/03/21 22:33 Hydrocodone-Acetamin 2.5-108/5 Ml Solution PO 07/08/21 22:32 Q4HPRN PRN PAIN Discontinued Medications Generic Name Dose Route Start Last Admin Trade Name Mishel PRN Reason Stop Dose Admin Sodium Chloride 1,000 mls @ 999 mls/hr 07/03/21 19:23 07/03/21 20:50 Sodium Chloride 0.9% 1000 Ml IV 07/03/21 20:23 Infused .Q1H1M STA Infusion Sodium Chloride Confirm 07/03/21 19:35 Sodium Chloride 0.9% 1000 Ml Administered 07/03/21 19:36 Dose 1,000 mls @ ud .ROUTE .STK-MED ONE Morphine Sulfate 2 mg 07/03/21 21:59 07/03/21 22:15 Morphine Sulfate 2 Mg Inj IV 07/03/21 22:00 2 mg STAT ONE Administration Morphine Sulfate Confirm 07/03/21 22:14 Morphine Sulfate 2 Mg Inj Administered 07/03/21 22:15 Dose 2 mg .ROUTE .STK-MED ONE Ondansetron HCl 4 mg 07/03/21 19:23 07/03/21 19:36 Zofran 4 Mg/2 Ml Vial IV 07/03/21 19:24 4 mg STAT STA Administration Ondansetron HCl Confirm 07/03/21 19:35 Zofran 4 Mg/2 Ml Vial Administered 07/03/21 19:36 Dose 4 mg .ROUTE .STK-MED ONE Lab/Rad Data: Laboratory Result Diagrams 07/03/21 19:54 07/03/21 19:54 Laboratory Results 07/03/21 07/03/21 07/03/21 Range/Units 20:16 20:00 19:54 WBC (4.0-10.5) K/mm3 RBC (4.1-5.6) M/mm3 Hgb (12.5-18.0) gm/dl Hct (42-50) % MCV (78-100) fl MCH (26-32) pg MCHC (32-36) g/dl RDW (11.5-14.0) % Plt Count (150-450) K/mm3 MPV (7.5-11.0) fl Segmented Neutrophils (36.-66.) % Band Neutrophils (0.0-2.0) % Lymphocytes (Manual) (24-44) % Monocytes (Manual) (0.0-12.0) % Eosinophils (Manual) (0.00-3.0) % Platelet Estimate (NORMAL) RBC Morphology Sodium (137-145) mmol/L Potassium (3.5-5.1) mmol/L Chloride (98-107) mmol/L Carbon Dioxide (22-30) mmol/L Anion Gap (5-15) MEQ/L BUN (9-20) mg/dL Creatinine (0.66-1.25) mg/dL Estimated GFR ML/MIN Glucose (74-106) mg/dL Lactic Acid (0.4-2.0) Calcium (8.4-10.2) mg/dL Total Bilirubin (0.2-1.3) mg/dL AST (17-59) U/L ALT (0-50) U/L Alkaline Phosphatase (38-126) U/L Troponin I 0.026 (0.000-0.034) ng/mL Serum Total Protein (6.3-8.2) g/dL Albumin (3.5-5.0) g/dL Thyroxine (T4) 10.8 (5.53-10.96) ug/dL TSH 3rd Generation (0.47-4.68) mIU/L Urine Color YELLOW (YELLOW) Urine Appearance CLEAR (CLEAR) Urine pH 6.0 (5-6) Ur Specific Kaycee 1.021 (1.005-1.025) Urine Protein 30 (Negative) Urine Ketones NEGATIVE (NEGATIVE) Urine Blood NEGATIVE (0-5) Jas/ul Urine Nitrite NEGATIVE (NEGATIVE) Urine Bilirubin NEGATIVE (NEGATIVE) Urine Urobilinogen NEGATIVE (0-1) mg/dL Ur Leukocyte Esterase NEGATIVE (NEGATIVE) Urine WBC (Auto) 0-2 (0-5) /HPF Urine Mucus (Auto) SLIGHT (NEGATIVE) /HPF Urine Culture Reflexed NO (NO) Urine Glucose NEGATIVE (NEGATIVE) mg/dL 07/03/21 07/03/21 07/03/21 Range/Units 19:54 19:54 19:51 WBC 4.9 (4.0-10.5) K/mm3 RBC 4.28 (4.1-5.6) M/mm3 Hgb 13.8 (12.5-18.0) gm/dl Hct 40.0 L (42-50) % MCV 93.5 (78-100) fl MCH 32.2 H (26-32) pg MCHC 34.5 (32-36) g/dl RDW 12.9 (11.5-14.0) % Plt Count 150 (150-450) K/mm3 MPV 9.3 (7.5-11.0) fl Segmented Neutrophils 83 H (36.-66.) % Band Neutrophils 3 H (0.0-2.0) % Lymphocytes (Manual) 12 L (24-44) % Monocytes (Manual) 1 (0.0-12.0) % Eosinophils (Manual) 1 (0.00-3.0) % Platelet Estimate NORMAL (NORMAL) RBC Morphology NORMAL Sodium 134 L (137-145) mmol/L Potassium 4.0 (3.5-5.1) mmol/L Chloride 101 (98-107) mmol/L Carbon Dioxide 27 (22-30) mmol/L Anion Gap 9.5 (5-15) MEQ/L BUN 14 (9-20) mg/dL Creatinine 0.83 (0.66-1.25) mg/dL Estimated GFR > 60.0 ML/MIN Glucose 126 H (74-106) mg/dL Lactic Acid (0.4-2.0) Calcium 8.3 L (8.4-10.2) mg/dL Total Bilirubin 0.60 (0.2-1.3) mg/dL AST 152 H (17-59) U/L ALT 93 H (0-50) U/L Alkaline Phosphatase 52 (38-126) U/L Troponin I (0.000-0.034) ng/mL Serum Total Protein 6.0 L (6.3-8.2) g/dL Albumin 3.2 L (3.5-5.0) g/dL Thyroxine (T4) (5.53-10.96) ug/dL TSH 3rd Generation 3.360 (0.47-4.68) mIU/L Urine Color (YELLOW) Urine Appearance (CLEAR) Urine pH (5-6) Ur Specific Kaycee (1.005-1.025) Urine Protein (Negative) Urine Ketones (NEGATIVE) Urine Blood (0-5) Jas/ul Urine Nitrite (NEGATIVE) Urine Bilirubin (NEGATIVE) Urine Urobilinogen (0-1) mg/dL Ur Leukocyte Esterase (NEGATIVE) Urine WBC (Auto) (0-5) /HPF Urine Mucus (Auto) (NEGATIVE) /HPF Urine Culture Reflexed (NO) Urine Glucose (NEGATIVE) mg/dL 07/03/21 Range/Units 19:28 WBC (4.0-10.5) K/mm3 RBC (4.1-5.6) M/mm3 Hgb (12.5-18.0) gm/dl Hct (42-50) % MCV (78-100) fl MCH (26-32) pg MCHC (32-36) g/dl RDW (11.5-14.0) % Plt Count (150-450) K/mm3 MPV (7.5-11.0) fl Segmented Neutrophils (36.-66.) % Band Neutrophils (0.0-2.0) % Lymphocytes (Manual) (24-44) % Monocytes (Manual) (0.0-12.0) % Eosinophils (Manual) (0.00-3.0) % Platelet Estimate (NORMAL) RBC Morphology Sodium (137-145) mmol/L Potassium (3.5-5.1) mmol/L Chloride (98-107) mmol/L Carbon Dioxide (22-30) mmol/L Anion Gap (5-15) MEQ/L BUN (9-20) mg/dL Creatinine (0.66-1.25) mg/dL Estimated GFR ML/MIN Glucose (74-106) mg/dL Lactic Acid 1.1 (0.4-2.0) Calcium (8.4-10.2) mg/dL Total Bilirubin (0.2-1.3) mg/dL AST (17-59) U/L ALT (0-50) U/L Alkaline Phosphatase (38-126) U/L Troponin I (0.000-0.034) ng/mL Serum Total Protein (6.3-8.2) g/dL Albumin (3.5-5.0) g/dL Thyroxine (T4) (5.53-10.96) ug/dL TSH 3rd Generation (0.47-4.68) mIU/L Urine Color (YELLOW) Urine Appearance (CLEAR) Urine pH (5-6) Ur Specific Kaycee (1.005-1.025) Urine Protein (Negative) Urine Ketones (NEGATIVE) Urine Blood (0-5) Jas/ul Urine Nitrite (NEGATIVE) Urine Bilirubin (NEGATIVE) Urine Urobilinogen (0-1) mg/dL Ur Leukocyte Esterase (NEGATIVE) Urine WBC (Auto) (0-5) /HPF Urine Mucus (Auto) (NEGATIVE) /HPF Urine Culture Reflexed (NO) Urine Glucose (NEGATIVE) mg/dL - Progress Progress: improved, re-examined Progress Note: 07/03/21 22:28 Medical decision making: This patient was reviewed with Dr. Davies our [facility] hospitalist. We will bring the patient and to provide him with IV hydration, remdesivir, Decadron and Lovenox subcutaneously. Patient has persistent COVID- 19 infection symptoms, confusion and weakness. Discussed with Dr.: Other (Keke) Counseled pt/family regarding: lab results, diagnosis - Departure Departure Disposition: In-patient Admission Clinical Impression: COVID-19 virus infection, Confusion, Weakness Condition: Stable Critical Care Time: No Referrals: ASTER MARADIAGA II [Primary Care Provider] -
[2021-07-03 20:01] LABS: Hemoglobin 13.8 gm/dl (12.5-18.0); Mean Cell Volume 93.5 fl (78-100); Mean Corpuscular Hemoglobin 32.2 pg (26-32); Mean Corpuscular Hgb Concent. 34.5 g/dl (32-36); Mean Platelet Volume 9.3 fl (7.5-11.0); Platelet Count 150 K/mm3 (150-450); Red Blood Count 4.28 M/mm3 (4.1-5.6); Red Cell Distribution Width 12.9 % (11.5-14.0); White Blood Count 4.9 K/mm3 (4.0-10.5)
[2021-07-03 20:20] LABS: ALBUMIN 3.2 g/dL (3.5-5.0); ALKALINE PHOSPHATASE 52 U/L (38-126); ANION GAP 9.5 MEQ/L (5-15); BLOOD UREA NITROGEN 14 mg/dL (9-20); CHLORIDE 101 mmol/L (98-107); Calcium 8.3 mg/dL (8.4-10.2); Carbon Dioxide 27 mmol/L (22-30); Creatinine 1 0.83 mg/dL (0.66-1.25); EST GLOMERULAR FILTRATION RATE > 60.0 ML/MIN; Glucose 126 mg/dL (74-106); SGOT/AST 152 U/L (17-59); SGPT/ALT 93 U/L (0-50); SODIUM 134 mmol/L (137-145)
[2021-07-03 20:27] LABS: Appearance CLEAR (CLEAR); Bilirubin NEGATIVE (NEGATIVE); Blood NEGATIVE Ery/ul (0-5); Glucose NEGATIVE (NEGATIVE); Ketones NEGATIVE (NEGATIVE); Leukocyte Esterase NEGATIVE (NEGATIVE); Mucus SLIGHT /HPF (NEGATIVE); Nitrite NEGATIVE (NEGATIVE); Protein,Urine Dip 30 (Negative); Specific Gravity 1.021 (1.005-1.025); Urobilinogen NEGATIVE mg/dL (0-1); WBC 0-2 /HPF (0-5)
[2021-07-03] MEDS ORDERED: MORPHINE SULFATE 2 MG INJ IV ONE (21:59)
[2021-07-03 22:04] LABS: BAND 3 % (0.0-2.0); Eosinophil 1 % (0.00-3.0); Lymphocytes 12 % (24-44); Monocyte 1 % (0.0-12.0); Neutrophils 83 % (36.-66.); Platelet Estimate NORMAL (NORMAL); Total Cells Counted 100
[2021-07-03] MEDS ORDERED: MORPHINE SULFATE 2 MG INJ ONE (22:14)
[2021-07-03] MEDS ORDERED: HYDROCODONE-ACETAMIN 2.5-108/5 ML SOLUTION PO PRN (22:33)
[2021-07-04] MEDS ORDERED: Zofran 4 MG/2 ML VIAL IV PRN (02:09)
[2021-07-04] MEDS ORDERED: REMDESIVIR 200 MG in Sodium Chloride 0.9% 250 ML 250 ML IV ONE (02:09)
[2021-07-04] MEDS: Sodium Chloride 0.9% 1000 ML 1,000 ML IV SCH (02:16)
[2021-07-04] MEDS ORDERED: Sodium Chloride 0.9% 250 ML 250 ML IV ONE (02:24)
[2021-07-04] MEDS ORDERED: REMDESIVIR IV ONE (02:24)
[2021-07-04] MEDS ORDERED: TYLENOL 325 MG PO ONE (04:24)
[2021-07-04 05:37] LABS: Hematocrit 39.1 % (42-50); Hemoglobin 13.2 gm/dl (12.5-18.0); Mean Corpuscular Hemoglobin 31.7 pg (26-32); Mean Corpuscular Hgb Concent. 33.8 g/dl (32-36); Mean Platelet Volume 9.3 fl (7.5-11.0); Platelet Count 157 K/mm3 (150-450); Red Blood Count 4.16 M/mm3 (4.1-5.6); Red Cell Distribution Width 13.1 % (11.5-14.0); White Blood Count 5.6 K/mm3 (4.0-10.5)
[2021-07-04 06:04] LABS: ALBUMIN 2.9 g/dL (3.5-5.0); ALKALINE PHOSPHATASE 46 U/L (38-126); ANION GAP 10.3 MEQ/L (5-15); BLOOD UREA NITROGEN 11 mg/dL (9-20); CHLORIDE 103 mmol/L (98-107); Calcium 7.9 mg/dL (8.4-10.2); Carbon Dioxide 25 mmol/L (22-30); Creatinine 1 0.78 mg/dL (0.66-1.25); EST GLOMERULAR FILTRATION RATE > 60.0 ML/MIN; Glucose 129 mg/dL (74-106); Potassium 4.3 mmol/L (3.5-5.1); SGOT/AST 147 U/L (17-59); SGPT/ALT 83 U/L (0-50); SODIUM 134 mmol/L (137-145); Total Protein 5.6 g/dL (6.3-8.2)
[2021-07-04] MEDS ORDERED: NORCO 5/325 MG PO PRN (07:37)
[2021-07-04] MEDS: Ativan 1 MG PO PRN (09:51)
[2021-07-04] MEDS: ENOXAPARIN SODIUM SQ SCH (09:51)
[2021-07-04] MEDS: DECADRON 10MG INJ. IV SCH (09:51)
[2021-07-04] MEDS: Zestril 10 MG PO SCH (11:23)
--- NOTE | 2021-07-04 13:11 | HP ---
CHIEF COMPLAINT: COVID pneumonia, COVID headache. HISTORY OF PRESENT ILLNESS: The patient is a 60 year-old white male who has been sick for eight days with headache and myalgia, not eating well. He fell and got off the floor once. He lives by himself, been for two years. He does not drink. He works at [employer]. He states he is feeling a little bit better since he was admitted last night around midnight. His temperature has gone up. His oxygen needs have gone up in the brief time he has been here. He does not smoke. He does not drink. He has been on a diet. Somebody put him on Adipex which he does not agree with from an out of town doctor. He is willing to quit that. He is really not terribly obese right now, started it after the divorce. He denies any chest pain. He is short of breath on exertion. He does not smoke. He does not know who he was exposed to that gave him this bacteria and he has not seen anybody for eight or nine days. He came in a couple of days ago and his sodium was down to 128. He stopped his medications confusion from emergency room instructions. However, his blood pressure went down instead of up and he had started feeling worse and came in late last night, admitted about 1300 hours. He was initially here on 07/01/2021 and was sent home. He did his own testing so had to wait and repeat the testing. He states he is in a brain fog. CT of the head was normal. His lab work showed his sodium was now up to 130. MEDICATIONS: Home medicines included Ambien 10, meloxicam 7.5, Adipex 0.5 b.i.d., olmesartan/hydrochlorothiazide 1 q.d. ALLERGIES: PENICILLIN. PAST MEDICAL HISTORY: Hypertension for years but blood pressure was normal on admission probably due to dehydration and disease. PAST SURGICAL HISTORY: He said he had a prostatectomy for what really sounds like low grade prostate cancer five years ago. REVIEW OF SYSTEMS: HEENT: Headache which has improved. Decreased vision. Gait instability. ABDOMEN: Nausea. No vomiting. No diarrhea. MUSCULOSKELETAL: Myalgia all over. SOCIAL HISTORY: He quit smoking seven years ago. No drug use. PHYSICAL EXAMINATION: This morning at 1000 hours after being in the emergency room for 12 hours he is alert, orientated and pleasant. He had gotten some sleep. His temperature is up to 103F. He is on 3 liters of oxygen. HEENT: Pupils equal and reactive to light. He has hearing aids in. CHEST: Few crackles. CVS: Heart sound regular rate. No murmurs or gallops. ABDOMEN: Soft. No masses or organomegaly. EXTREMITIES: No edema. He has had surgery it looks like on his left knee. LAB DATA AND TESTS: White count, CBC was normal. His CTNI has been normal. D-dimer was 1363. UA was normal. Glucose 126, sodium 134 this morning, potassium normal. COVID test positive. Chest x-ray report is not on the chart yet. IMPRESSION: Eight days of COVID with COVID pneumonia, myalgia, headache, weakness, hyponatremia, hypertension, moderate obesity. His liver enzymes slightly elevated due to fatty liver probably. PLAN: Admission for all COVID medications, oxygen, pain relief.
[2021-07-04] MEDS: REMDESIVIR 100 MG in Sodium Chloride 0.9% 100 ML BAG 100 ML IV SCH (22:36)
[2021-07-05] MEDS: Sodium Chloride 0.9% 1000 ML 1,000 ML IV SCH (00:09)
[2021-07-05 05:46] LABS: Hematocrit 43.3 % (42-50); Hemoglobin 14.4 gm/dl (12.5-18.0); Mean Cell Volume 93.5 fl (78-100); Mean Corpuscular Hemoglobin 31.1 pg (26-32); Mean Corpuscular Hgb Concent. 33.3 g/dl (32-36); Mean Platelet Volume 9.5 fl (7.5-11.0); Platelet Count 199 K/mm3 (150-450); Red Blood Count 4.63 M/mm3 (4.1-5.6)
[2021-07-05 06:28] LABS: ALBUMIN 3.3 g/dL (3.5-5.0); ALKALINE PHOSPHATASE 54 U/L (38-126); ANION GAP 11.1 MEQ/L (5-15); BLOOD UREA NITROGEN 14 mg/dL (9-20); CHLORIDE 102 mmol/L (98-107); Calcium 8.8 mg/dL (8.4-10.2); Carbon Dioxide 27 mmol/L (22-30); Creatinine 1 0.67 mg/dL (0.66-1.25); EST GLOMERULAR FILTRATION RATE > 60.0 ML/MIN; Glucose 150 mg/dL (74-106); Potassium 4.4 mmol/L (3.5-5.1); SGOT/AST 159 U/L (17-59); SGPT/ALT 95 U/L (0-50); SODIUM 136 mmol/L (137-145); Total Protein 6.3 g/dL (6.3-8.2)
[2021-07-05] MEDS: DECADRON 10MG INJ. IV SCH (12:02)
[2021-07-05] MEDS: OLUMIANT PO SCH (12:02)
[2021-07-05] MEDS: Zestril 10 MG PO SCH ×2 (12:02→12:28)
[2021-07-05] MEDS: ENOXAPARIN SODIUM SQ SCH (12:04)
[2021-07-05] MEDS: REMDESIVIR 100 MG in Sodium Chloride 0.9% 100 ML BAG 100 ML IV SCH (21:02)
[2021-07-05] MEDS: TYLENOL 325 MG PO PRN (22:18)
[2021-07-05] MEDS: Ambien 10 MG PO PRN (22:18)
[2021-07-06] MEDS: Ativan 1 MG PO PRN (03:40)
[2021-07-06] MEDS: TYLENOL 325 MG PO PRN ×4 (05:54→21:03)
[2021-07-06 06:11] LABS: Hematocrit 46.1 % (42-50); Hemoglobin 15.4 gm/dl (12.5-18.0); Mean Cell Volume 92.8 fl (78-100); Mean Corpuscular Hgb Concent. 33.4 g/dl (32-36); Mean Platelet Volume 9.5 fl (7.5-11.0); Platelet Count 268 K/mm3 (150-450); Red Blood Count 4.97 M/mm3 (4.1-5.6); Red Cell Distribution Width 13.2 % (11.5-14.0); White Blood Count 6.9 K/mm3 (4.0-10.5)
[2021-07-06 06:38] LABS: ALBUMIN 3.6 g/dL (3.5-5.0); ALKALINE PHOSPHATASE 56 U/L (38-126); ANION GAP 14.5 MEQ/L (5-15); BLOOD UREA NITROGEN 19 mg/dL (9-20); CHLORIDE 105 mmol/L (98-107); Calcium 9.3 mg/dL (8.4-10.2); Carbon Dioxide 23 mmol/L (22-30); Creatinine 1 0.64 mg/dL (0.66-1.25); EST GLOMERULAR FILTRATION RATE > 60.0 ML/MIN; Glucose 144 mg/dL (74-106); Potassium 4.5 mmol/L (3.5-5.1); SGOT/AST 137 U/L (17-59); SGPT/ALT 96 U/L (0-50); SODIUM 138 mmol/L (137-145); Total Protein 6.8 g/dL (6.3-8.2)
[2021-07-06] MEDS: OLUMIANT PO SCH (09:15)
[2021-07-06] MEDS: DECADRON 10MG INJ. IV SCH (09:19)
[2021-07-06] MEDS: Zestril 10 MG PO SCH (09:19)
[2021-07-06] MEDS: ENOXAPARIN SODIUM SQ SCH (09:20)
[2021-07-06] MEDS: REMDESIVIR 100 MG in Sodium Chloride 0.9% 100 ML BAG 100 ML IV SCH (21:02)
[2021-07-06] MEDS: Ambien 10 MG PO PRN (22:13)
[2021-07-07] MEDS: TYLENOL 325 MG PO PRN ×3 (04:50→22:00)
[2021-07-07 06:22] LABS: Hematocrit 41.4 % (42-50); Hemoglobin 13.9 gm/dl (12.5-18.0); Mean Cell Volume 93.2 fl (78-100); Mean Corpuscular Hemoglobin 31.3 pg (26-32); Mean Corpuscular Hgb Concent. 33.6 g/dl (32-36); Mean Platelet Volume 9.5 fl (7.5-11.0); Platelet Count 291 K/mm3 (150-450); Red Blood Count 4.44 M/mm3 (4.1-5.6); Red Cell Distribution Width 13.1 % (11.5-14.0); White Blood Count 7.9 K/mm3 (4.0-10.5)
[2021-07-07 06:50] LABS: INR 1.05 (0.8-3.0); PROTIME 12.4 SECONDS (9.4-12.5)
[2021-07-07 06:58] LABS: ALBUMIN 3.1 g/dL (3.5-5.0); ALKALINE PHOSPHATASE 54 U/L (38-126); ANION GAP 12.3 MEQ/L (5-15); BLOOD UREA NITROGEN 19 mg/dL (9-20); CHLORIDE 106 mmol/L (98-107); Calcium 8.7 mg/dL (8.4-10.2); Carbon Dioxide 24 mmol/L (22-30); Creatinine 1 0.64 mg/dL (0.66-1.25); EST GLOMERULAR FILTRATION RATE > 60.0 ML/MIN; Glucose 140 mg/dL (74-106); Potassium 4.2 mmol/L (3.5-5.1); SGOT/AST 136 U/L (17-59); SGPT/ALT 117 U/L (0-50); SODIUM 137 mmol/L (137-145); Total Protein 6.1 g/dL (6.3-8.2)
[2021-07-07] MEDS: ENOXAPARIN SODIUM SQ SCH (09:53)
[2021-07-07] MEDS: DECADRON 10MG INJ. IV SCH (09:53)
[2021-07-07] MEDS: OLUMIANT PO SCH (09:53)
[2021-07-07] MEDS: Zestril 10 MG PO SCH (09:54)
[2021-07-07] MEDS: REMDESIVIR 100 MG in Sodium Chloride 0.9% 100 ML BAG 100 ML IV SCH (21:02)
[2021-07-07] MEDS: Ambien 10 MG PO PRN (22:00)
[2021-07-08] MEDS: OLUMIANT PO SCH (09:48)
[2021-07-08] MEDS: ENOXAPARIN SODIUM SQ SCH (09:48)
[2021-07-08] MEDS: Zestril 10 MG PO SCH (09:48)
[2021-07-08] MEDS: TYLENOL 325 MG PO PRN ×2 (13:04→19:39)
[2021-07-08] MEDS: DECADRON 10MG INJ. IV SCH (13:05)
[2021-07-08] MEDS: Ativan 1 MG PO PRN (19:47)
[2021-07-08] MEDS: Sodium Chloride 0.9% 1000 ML 1,000 ML IV SCH (20:03)
[2021-07-08] MEDS: REMDESIVIR 100 MG in Sodium Chloride 0.9% 100 ML BAG 100 ML IV SCH (21:03)
[2021-07-08] MEDS: Ambien 10 MG PO PRN (21:43)
[2021-07-09] MEDS: TYLENOL 325 MG PO PRN ×4 (06:51→20:53)
--- NOTE | 2021-07-09 08:36 | XRAY ---
Indication: Covid 19 pneumonia. Comparison: July 01, 2021. Portable chest again demonstrates diffuse bilateral airspace disease minimally worsened in the interim again without consolidation/large effusion. Remaining heart and bony thorax unremarkable.
[2021-07-09] MEDS: OLUMIANT PO SCH (09:15)
[2021-07-09] MEDS: DECADRON 10MG INJ. IV SCH (09:15)
[2021-07-09] MEDS: ENOXAPARIN SODIUM SQ SCH (09:15)
[2021-07-09] MEDS: Zestril 10 MG PO SCH (09:16)
[2021-07-09] MEDS: Ativan 1 MG PO PRN ×3 (09:16→20:54)
[2021-07-09] MEDS ORDERED: REMDESIVIR 100 MG in Sodium Chloride 0.9% 100 ML BAG 100 ML IV SCH (09:37)
[2021-07-09] MEDS ORDERED: Lasix 20 MG/2 ML IV SCH (10:30)
[2021-07-09] MEDS: REMDESIVIR 100 MG in Sodium Chloride 0.9% 100 ML BAG 100 ML IV SCH (20:54)
[2021-07-09] MEDS: Ambien 10 MG PO PRN (22:03)
[2021-07-10 05:24] LABS: Hematocrit 42.6 % (42-50); Hemoglobin 14.2 gm/dl (12.5-18.0); Mean Cell Volume 92.8 fl (78-100); Mean Corpuscular Hemoglobin 30.9 pg (26-32); Mean Corpuscular Hgb Concent. 33.3 g/dl (32-36); Mean Platelet Volume 9.2 fl (7.5-11.0); Platelet Count 300 K/mm3 (150-450); Red Blood Count 4.59 M/mm3 (4.1-5.6); Red Cell Distribution Width 12.9 % (11.5-14.0); White Blood Count 11.7 K/mm3 (4.0-10.5)
[2021-07-10 06:00] LABS: ALBUMIN 3.3 g/dL (3.5-5.0); ALKALINE PHOSPHATASE 56 U/L (38-126); ANION GAP 12.4 MEQ/L (5-15); BLOOD UREA NITROGEN 22 mg/dL (9-20); CHLORIDE 106 mmol/L (98-107); Calcium 8.9 mg/dL (8.4-10.2); Carbon Dioxide 22 mmol/L (22-30); Creatinine 1 0.72 mg/dL (0.66-1.25); EST GLOMERULAR FILTRATION RATE > 60.0 ML/MIN; Glucose 109 mg/dL (74-106); Potassium 4.4 mmol/L (3.5-5.1); SGOT/AST 52 U/L (17-59); SGPT/ALT 85 U/L (0-50); SODIUM 136 mmol/L (137-145); Total Protein 6.3 g/dL (6.3-8.2)
[2021-07-10 06:21] LABS: ANISOCYTOSIS 1+; Lymphocytes 21 % (24-44); Monocyte 2 % (0.0-12.0); Neutrophils 77 % (36.-66.); Platelet Estimate NORMAL (NORMAL); Total Cells Counted 100
[2021-07-10] MEDS: TYLENOL 325 MG PO PRN ×4 (06:22→21:01)
[2021-07-10] MEDS: ENOXAPARIN SODIUM SQ SCH ×2 (09:01→21:01)
[2021-07-10] MEDS: OLUMIANT PO SCH (09:02)
[2021-07-10] MEDS: DECADRON 10MG INJ. IV SCH (09:02)
[2021-07-10] MEDS: Protonix 40MG Tablet PO SCH (09:02)
[2021-07-10] MEDS: Zestril 10 MG PO SCH (09:02)
[2021-07-10] MEDS ORDERED: ENOXAPARIN SODIUM SQ SCH (10:00)
[2021-07-10] MEDS: Ativan 1 MG PO PRN (21:01)
[2021-07-10] MEDS: REMDESIVIR 100 MG in Sodium Chloride 0.9% 100 ML BAG 100 ML IV SCH (21:01)
[2021-07-10] MEDS: Ambien 10 MG PO PRN (22:10)
[2021-07-11] MEDS ORDERED: OCEAN Nasal Spray NS PRN (02:30)
[2021-07-11] MEDS: TYLENOL 325 MG PO PRN ×3 (05:56→15:03)
--- NOTE | 2021-07-11 08:00 | CONS ---
CONSULT DATE: 07/10/2021 HISTORY: Jerome Rasmussen is a 60 year-old male who has been hospitalized with eight day complaint of headache, nausea and not feeling well. Reportedly he retired on 06/27/2021 and started feeling worse the next day. Initially he disregarded his symptoms thinking it was sinusitis related however he got progressively more short of breath. He has been admitted to [facility] where he was treated per protocol by Dr. Krause. The patient continued to have some shortness of breath and was started on second round of Remdesivir therapy which is ongoing. He does report feeling better. He is able to carry out a good conversation. He is currently on 6 liters nasal cannula. He denies any previous pulmonary problems. He reportedly got a year ago and gained significant weight. He was started on Adipex twice a day and lost some of the weight. He denies any previous pulmonary problems. PAST MEDICAL HISTORY: Positive for chronic insomnia, arthritis, weight gain, hypertension. PAST SURGICAL HISTORY: No recent surgery. PERSONAL AND SOCIAL HISTORY: He is a reformed smoker as well as alcoholic. He also used to do illicit substances in the past. 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 MEDICATIONS: Home and current medications are reviewed. ALLERGIES: PENICILLIN. PHYSICAL EXAMINATION: This is a middle aged male who appears comfortable, able to carry out a conversation. Vital signs noted. HEENT: Normocephalic. Oral exam limited. NECK: Supple. CVS: First and second heart sounds are normal, regular, rhythmic. RESPIRATORY: Shows diminished breath sounds, fairly clear. ABDOMEN: Obese. EXTREMITIES: No edema is noted. LABORATORY DATA AND TESTS: White count 11.7, hemoglobin 14.2, hematocrit 42, PLT 300,000. D-dimer is 5142. Sodium 136, potassium 4.4, chloride 106, bicarb 22, BUN 22, creatinine 0.7. Chest x-ray noted. ASSESSMENT: This is a 60 year old male admitted with: 1) Acute severe hypoxic respiratory failure with improving oxygenation. 2) Bilateral pulmonary infiltrates secondary to COVID-19 with viral pneumonitis. 3) Obesity. 4) Chronic insomnia. 5) Comorbidities listed above. RECOMMENDATIONS: The patient appears to have already improved significantly and will continue to wean supplemental oxygen once he is at or below 4 liters. He may be able to be discharged home with outpatient follow up. Advised the patient to get vaccinated in three months or so, continue steroid taper, other supportive care including deep vein thrombosis prophylaxis. Further recommendations awaiting clinical improvement. Thank you, Dr. Krause, for allowing me to participate in the care of your patient.
[2021-07-11] MEDS: ENOXAPARIN SODIUM SQ SCH ×2 (09:03→21:17)
[2021-07-11] MEDS: Zestril 10 MG PO SCH (09:04)
[2021-07-11] MEDS: Protonix 40MG Tablet PO SCH (09:04)
[2021-07-11] MEDS: OLUMIANT PO SCH (09:04)
[2021-07-11] MEDS: NORCO 5/325 MG PO PRN (19:17)
[2021-07-11] MEDS: Ativan 1 MG PO PRN (20:04)
[2021-07-11] MEDS: REMDESIVIR 100 MG in Sodium Chloride 0.9% 100 ML BAG 100 ML IV SCH (21:17)
[2021-07-11] MEDS: Ambien 10 MG PO PRN (22:11)
[2021-07-12] MEDS: NORCO 5/325 MG PO PRN ×2 (01:21→06:20)
[2021-07-12] MEDS: Zestril 10 MG PO SCH (10:44)
[2021-07-12] MEDS: OLUMIANT PO SCH (10:44)
[2021-07-12] MEDS: Protonix 40MG Tablet PO SCH (10:44)
[2021-07-12] MEDS: ENOXAPARIN SODIUM SQ SCH ×2 (10:44→21:22)
--- NOTE | 2021-07-12 14:32 | XRAY ---
Indication: Constant headache. Multiple contiguous axial images obtained through the head prior to and following 80 cc Isovue 370 contrast. Comparison: Noncontrast exam July 01, 2021. There remains age-appropriate global atrophy. No acute intracranial hemorrhage, abnormal extra-axial fluid collection, or mass effect. Postcontrast images are negative for abnormal enhancing intra-or extra-axial mass. Fourth ventricle is midline without hydrocephalus. Sánchez-white matter differentiation preserved. Bony calvarium intact. Visualized paranasal sinuses and mastoid air cells are clear. Impression: Continued negative CT head with and without contrast exam.
[2021-07-12] MEDS: TYLENOL 325 MG PO PRN (16:54)
[2021-07-12] MEDS: Ativan 1 MG PO PRN (21:22)
[2021-07-12] MEDS: REMDESIVIR 100 MG in Sodium Chloride 0.9% 100 ML BAG 100 ML IV SCH (21:22)
[2021-07-12] MEDS: Ambien 10 MG PO PRN (22:31)
[2021-07-13 07:35] VITALS: BP 110/70; PULSE 66; O2SAT 91
[2021-07-13] MEDS: TYLENOL 325 MG PO PRN (09:35)
[2021-07-13] MEDS: OLUMIANT PO SCH (09:35)
[2021-07-13] MEDS: ENOXAPARIN SODIUM SQ SCH (09:36)
[2021-07-13] MEDS: Zestril 10 MG PO SCH (09:36)
[2021-07-13] MEDS: Protonix 40MG Tablet PO SCH (09:36)
--- NOTE | 2021-07-13 09:49 | PCM.NOTE ---
Date and Time: 07/13/21942 Subjective Assessment: last 24 hours events noted - Review of Systems Constitutional: No Fever, No Chills Eyes: No Symptoms Ears, Nose, & Throat: No Symptoms Respiratory: No Cough, No Short Of Breath Cardiac: No Chest Pain, No Edema, No Syncope Abdominal/Gastrointestinal: No Abdominal Pain, No Nausea, No Vomiting, No Diarrhea Genitourinary Symptoms: No Dysuria Musculoskeletal: No Back Pain, No Neck Pain Skin: No Rash Neurological: No Dizziness, No Focal Weakness, No Sensory Changes Psychological: No Symptoms Endocrine: No Symptoms Hematologic/Lymphatic: No Symptoms Immunological/Allergic: No Symptoms Objective Exam General Appearance: no apparent distress, alert Neurologic Exam: alert, oriented x 3, cooperative, normal mood/affect, sensation nml, No nml cerebellar function, No motor deficits Skin Exam: normal color, warm, dry Eye Exam: PERRL, EOMI, eyes nml inspection Ears, Nose, Throat Exam: normal ENT inspection, pharynx normal, moist mucous membranes Neck Exam: normal inspection, non-tender, supple, full range of motion Respiratory Exam: normal breath sounds, lungs clear, No respiratory distress Cardiovascular Exam: regular rate/rhythm, normal heart sounds Gastrointestinal/Abdomen Exam: soft, No tenderness, No mass Extremity Exam: normal inspection, normal range of motion Back Exam: normal inspection, normal range of motion, No CVA tenderness, No vertebral tenderness Male Genitalia Exam: deferred Rectal Exam: deferred OBJECTIVE DATA Vital Signs: Vital Signs - 24 hr Temp Pulse Resp BP Pulse Ox 07/13/21 07:55 17 07/13/21 07:33 97.7 F 66 17 110/70 91 L 07/13/21 06:00 69 20 90 L 07/13/21 04:00 58 L 20 90 L 07/13/21 02:00 59 L 18 94 L 07/13/21 00:00 57 L 16 94 L 07/12/21 22:00 60 20 90 L 07/12/21 19:58 98.3 F 72 16 117/57 93 L 07/12/21 19:51 92 L 07/12/21 18:00 69 11 L 91 L 07/12/21 16:00 98.0 F 76 14 114/64 92 L 07/12/21 14:00 68 20 93 L 07/12/21 12:24 97.7 F 77 18 112/73 93 L 07/12/21 10:24 66 20 90 L 07/12/21 10:00 19 Pain Assessment - Last Documented Pain Intensity 0 Pain Scale Used 0-10 Pain Scale Intake and Output: Intake & Output 07/10/21 07/11/21 07/12/21 07/13/21 11:59 11:59 11:59 11:59 Intake Total 1940 3017 2200 2060 Output Total 3000 2405 2345 1925 Balance -1060 612 -145 135 Weight 114.5 kg 114.3 kg Radiology Exams: Radiology Procedures Category Date Time Status HEAD W/WO CONTRAST [CT] Routine Exams 07/12/21 08:00 Completed Assessment/Plan (1) COVID-19 virus infection Current Visit: Yes Status: Acute Code(s): U07.1 - COVID-19 (2) Pneumonia Current Visit: Yes Status: Acute Qualifiers: Laterality: unspecified laterality Lung location: unspecified part of lung Code(s): J18.9 - PNEUMONIA, UNSPECIFIED ORGANISM
--- NOTE | 2021-07-13 12:31 | PCM.DS ---
Discharge Summary Date of Admission: 07/04/21 02:07 Admitting Physician: ISH MENDIOLA Consults: Consults on Case 07/10/21 09:14 Consult Pulmonology ROUTINE Primary Care Provider: ASTER MARADIAGA II Allergies Allergies Penicillins Allergy (Severe, Verified 03/07/20 09:58) Swelling Hospital Summary - Hospital Course Hospital Course: Chief Complaint Diagnosis Covid 19, Confusion, Weakness Allergies Allergy/AdvReac Type Severity Reaction Status Date / Time Penicillins Allergy Severe Swelling Verified 03/07/20 09:58 Vital Signs (Last 24 hours) Temp Pulse Resp BP Pulse Ox 07/13/21 10:00 16 07/13/21 07:55 17 07/13/21 07:33 97.7 F 66 17 110/70 91 L 07/13/21 06:00 69 20 90 L 07/13/21 04:00 58 L 20 90 L 07/13/21 02:00 59 L 18 94 L 07/13/21 00:00 57 L 16 94 L 07/12/21 22:00 60 20 90 L 07/12/21 19:58 98.3 F 72 16 117/57 93 L 07/12/21 19:51 92 L 07/12/21 18:00 69 11 L 91 L 07/12/21 16:00 98.0 F 76 14 114/64 92 L 07/12/21 14:00 68 20 93 L Current Medications Generic Name Dose Route Start Last Admin Trade Name Freq PRN Reason Stop Dose Admin Acetaminophen 650 mg 07/04/21 09:39 07/13/21 09:35 Acetaminophen 325 Mg Tablet PO 08/03/21 09:38 650 mg Q4H PRN PRN Administration PAIN AND/OR FEVER Hydrocodone Bitart/Acetaminophen 1 tab 07/09/21 10:36 07/12/21 06:20 Hydrocodone/Apap 5/325 Mg Tablet PO 07/14/21 10:35 1 tab Q4H PRN PRN Administration PAIN Baricitinib 4 mg 07/05/21 13:00 07/13/21 09:35 Baricitinib 2 Mg Tablet PO 07/18/21 10:01 4 mg DAILY YANCI Administration Enoxaparin Sodium 120 mg 07/10/21 10:00 07/13/21 09:36 Enoxaparin Sodium 120 Mg/0.8 Ml Syringe SQ 08/09/21 09:59 Not Given Q12HT YANCI Lisinopril 10 mg 07/04/21 12:00 07/13/21 09:36 Lisinopril 10 Mg Tablet PO 08/03/21 11:59 10 mg DAILY YANCI Administration Lorazepam 1 mg 07/04/21 02:09 07/12/21 21:22 Lorazepam 1 Mg Tablet PO 08/03/21 02:08 1 mg Q4H PRN PRN Administration Anxiety/Sleep Ondansetron HCl 4 mg 07/04/21 02:09 Ondansetron Hcl 4 Mg/2 Ml Vial IV 08/03/21 02:08 Q6H PRN PRN NAUSEA/VOMITING Pantoprazole Sodium 40 mg 07/10/21 10:00 07/13/21 09:36 Protonix (Pantoprazole) 40 Mg Tablet PO 08/09/21 09:59 40 mg DAILY YANCI Administration Sodium Chloride 1 ml 07/11/21 02:30 07/11/21 08:48 Sodium Chloride Nasal [place] 45 Ml Bottle NS 08/10/21 02:29 1 ml Q1H PRN PRN Administration Nasal dryness Zolpidem Tartrate 10 mg 07/04/21 11:07 07/12/21 22:31 Zolpidem Tartrate 10 Mg Tablet PO 08/03/21 11:06 10 mg HS PRN PRN Administration INSOMNIA Discontinued Medications Generic Name Dose Route Start Last Admin Trade Name Freq PRN Reason Stop Dose Admin Acetaminophen 650 mg 07/04/21 04:24 07/04/21 04:25 Acetaminophen 325 Mg Tablet PO 07/04/21 04:25 650 mg ONCE ONE Administration Hydrocodone Bitart/Acetaminophen 10 ml 07/03/21 22:33 Hydrocodone/Acetaminophen 5 Ml Udcup PO 07/08/21 22:32 Q4HPRN PRN PAIN Hydrocodone Bitart/Acetaminophen 1 tab 07/04/21 07:37 07/04/21 11:39 Hydrocodone/Apap 5/325 Mg Tablet PO 07/09/21 07:36 1 tab Q4H PRN PRN Administration PAIN Dexamethasone Sodium Phosphate 8 mg 07/04/21 10:00 07/07/21 09:53 Dexamethasone Sod Phosphate 10 Mg/Ml IV 07/13/21 10:01 8 mg DAILY YANCI Administration Dexamethasone Sodium Phosphate 10 mg 07/08/21 10:00 07/10/21 09:02 Dexamethasone Sod Phosphate 10 Mg/Ml IV 07/10/21 10:01 10 mg DAILY YANCI Administration Enoxaparin Sodium 40 mg 07/04/21 10:00 07/09/21 09:15 Enoxaparin Sodium 40 Mg/0.4 Ml Syringe SQ 08/03/21 09:59 40 mg DAILY YANCI Administration Enoxaparin Sodium 80 mg 07/10/21 10:00 Enoxaparin Sodium 80 Mg/0.8 Ml Syringe SQ 08/09/21 09:59 DAILY YANCI Furosemide 20 mg 07/09/21 10:30 07/09/21 10:40 Furosemide 20 Mg/Vial IV 07/09/21 10:31 20 mg QAM YANCI Administration Sodium Chloride 1,000 mls @ 999 mls/hr 07/03/21 19:23 07/03/21 20:50 Sodium Chloride 0.9% 1000 Ml IV 07/03/21 20:23 Infused .Q1H1M STA Infusion Sodium Chloride Confirm 07/03/21 19:35 Sodium Chloride 0.9% 1000 Ml Administered 07/03/21 19:36 Dose 1,000 mls @ ud .ROUTE .STK-MED ONE Remdesivir 200 mg/ Sodium 250 mls @ 125 mls/hr 07/04/21 02:09 07/04/21 02:37 Chloride IV 07/04/21 04:08 125 mls/hr ONCE ONE Administration Sodium Chloride 1,000 mls @ 50 mls/hr 07/04/21 02:09 07/08/21 20:03 Sodium Chloride 0.9% 1000 Ml IV 08/03/21 02:08 Not Given .Q20H YANCI Remdesivir 100 mg/ Sodium 100 mls @ 100 mls/hr 07/04/21 22:00 07/07/21 21:02 Chloride IV 07/07/21 22:59 100 mls/hr QPM YANCI Administration Sodium Chloride Confirm 07/04/21 02:24 Sodium Chloride 0.9% 250 Ml Administered 07/04/21 02:25 Dose 250 mls @ ud IV .STK-MED ONE Remdesivir 100 mg/ Sodium 100 mls @ 100 mls/hr 07/09/21 09:37 Chloride IV 07/12/21 10:36 Q24H YANCI Remdesivir 100 mg/ Sodium 100 mls @ 100 mls/hr 07/08/21 22:00 07/12/21 21:22 Chloride IV 07/12/21 22:59 100 mls/hr Q24H YANCI Administration Morphine Sulfate 2 mg 07/03/21 21:59 07/03/21 22:15 Morphine Sulfate 2 Mg/Ml Inj IV 07/03/21 22:00 2 mg STAT ONE Administration Morphine Sulfate Confirm 07/03/21 22:14 Morphine Sulfate 2 Mg/Ml Inj Administered 07/03/21 22:15 Dose 2 mg .ROUTE .STK-MED ONE Ondansetron HCl 4 mg 07/03/21 19:23 07/03/21 19:36 Ondansetron Hcl 4 Mg/2 Ml Vial IV 07/03/21 19:24 4 mg STAT STA Administration Ondansetron HCl Confirm 07/03/21 19:35 Ondansetron Hcl 4 Mg/2 Ml Vial Administered 07/03/21 19:36 Dose 4 mg .ROUTE .STK-MED ONE Remdesivir Confirm 07/04/21 02:24 Remdesivir 100 Mg Vial Administered 07/04/21 02:25 Dose 200 mg IV .STK-MED ONE Intake & Output (Last 24 hours) 07/11/21 07/12/21 07/13/21 07/14/21 11:59 11:59 11:59 11:59 Intake Total 3017 2200 2060 Output Total 2405 2345 1925 Balance 612 -145 135 Weight 114.3 kg Orders (Last 24 hours) Category Date Time Status Discharge Routine Discharge 07/13/21 Ordered Patient Care Notes (Last 24 hours) 07/13/21 09:43 Nursing Note by Sidra Murillo ambulating in room on room air, respirations unlabored, o2sat 90%. Initialized on 07/13/21 09:43 - END OF NOTE 07/13/21 07:40 Nursing Note by Sidra Murillo ROOM AIR O2 SAT 92% Initialized on 07/13/21 07:40 - END OF NOTE - Vitals & Intake/Output Vital Signs: Vital Signs Temperature 97.7 F 07/13/21 07:33 Pulse Rate 66 07/13/21 07:33 Respiratory Rate 16 07/13/21 10:00 Blood Pressure 110/70 07/13/21 07:33 O2 Sat by Pulse Oximetry 91 L 07/13/21 07:33 Intake & Output: Intake & Output 07/11/21 07/12/21 07/13/21 07/14/21 11:59 11:59 11:59 11:59 Intake Total 3017 2200 2060 Output Total 2402 2345 1925 Balance 612 -145 135 Weight 114.3 kg - Lab Result Diagrams: 07/10/21 05:05 07/10/21 05:05 - Radiology Exams Ordered Rad Exams-Entire Visit: Radiology Procedures Category Date Time Status HEAD W/WO CONTRAST [CT] Routine Exams 07/12/21 08:00 Completed - Procedures and Test Procedures and Tests throughout Hospitalization: Therapy Orders & Screens 07/04/21 02:09 Oxygen Nasal Cannula 2 lpm Comment: 07/06/21 17:02 Incentive Spirometry UD Comment: Diagnosis: Covid 19, Confusion, Weakness Discharge Exam General Appearance: no apparent distress, alert Neurologic Exam: alert, oriented x 3, cooperative, normal mood/affect, nml cerebellar function, sensation nml, No motor deficits Eye Exam: PERRL, EOMI, eyes nml inspection Ears, Nose, Throat Exam: normal ENT inspection, pharynx normal, moist mucous membranes Neck Exam: normal inspection, non-tender, supple, full range of motion Respiratory Exam: normal breath sounds, lungs clear, No respiratory distress Cardiovascular Exam: regular rate/rhythm, normal heart sounds Gastrointestinal/Abdomen Exam: soft, No tenderness, No mass Male Genitalia Exam: deferred Rectal Exam: deferred Back Exam: normal inspection, normal range of motion, No CVA tenderness, No vertebral tenderness Extremity Exam: normal inspection, normal range of motion Skin Exam: normal color, warm, dry Final Diagnosis/Problem List - Final Discharge Diagnosis/Problem (1) COVID-19 virus infection Current Visit: Yes Status: Acute Priority: High Assessment & Plan: stable hemodynamically. Code(s): U07.1 - COVID-19 (2) Pneumonia Current Visit: Yes Status: Resolved Priority: High Code(s): J18.9 - P NEUMONIA, UNSPECIFIED ORGANISM - Discharge Discharge Date: 07/13/21 Disposition: Home, Self-Care Condition: Stable Prescriptions: Continue Zolpidem Tartrate 10 mg [Ambien 10 MG] 10 mg PO HS PRN PRN PRN Reason: Insomnia Olmesartan/Hydrochlorothiazide [Olmesartan-Hctz 40-12.5 mg Tab] 1 each PO DAILY Phentermine HCl [Adipex-P] 0.5 tab PO BID Instructions: Preventing Falls, Coronavirus Disease 2019 (COVID-19) (DC) Additional Instructions: -YOU WILL NEED TO REMAIN IN QUARANTINE/ISOLATION UNTIL 07/17. ONCE YOU ARE OUT OF QUARANTINE, FOLLOW UP WITH YOUR PRIMARY CARE PHYSICIAN. -IT IS STRONGLY RECOMMENDED THAT YOU GET THE COVID-19 VACCINE IN 90 DAYS. Follow up with: MONIQUE KIRK [ACTIVE STAFF] - Call for Appointment (2 WEEK FOLLOWUP AFTER D/C) ASTER MARADIAGA II [Primary Care Provider] - Call for Appointment
--- NOTE | 2021-07-15 11:47 | DS ---
ADMISSION DIAGNOSIS: COVID pneumonia. DISCHARGE DIAGNOSES: 1) COVID PNEUMONIA. 2) HYPERTENSION. 3) CHRONIC SLEEP DISORDER. 4) HISTORY OF OBESITY. HOSPITAL COURSE: The patient came to the emergency room after being sick for eight days with headache, myalgia, not eating well and passing out. He has not drank alcohol. He works at [employer]. His temperature was 101F. His O2 saturation dropped after he was admitted. He looked chronically ill like someone who is going to get worse. He was treated aggressively with Remdesivir, Decadron, antibodies and he was anticoagulated. He required 5 liters of O2 for a good two weeks. We continued him on his Ambien 10 mg that he has been using since his divorce and to stop it would be horrible as it is very hard to get off of. We discontinued his Adipex. I told him that he is in a good way he probably should just give that up under the care of a physician. He is on LOVE inhibitor, hydrochlorothiazide which we stopped due to his hypotension. However, his blood pressure came up pretty quickly and I just added lisinopril 10 mg a day and his blood pressure remained in the 120's to 130's. He was just continuously in a brain fog. He said he just could not follow through with things, remember things. He did not have this problem before the illness. He made the decision during his hospital stay to retire from the [employer] industry and will be going back to his home in [place] where his son is coming down to look after him a little bit. However, he is ambulatory and eating well and looks great. His recent blood sugar was 109. His creatinine was 0.72. Electrolytes were normal. ALT was 85. D-dimer was markedly elevated on 07/10/2021 at 5142 and it slowly started coming down. His white count went to [address] down[address] Dr[address] Paul Tobar saw him several times and he agreed that he probably will go home this weekend. Luckily, his son can be with him. Initial D-dimer was 1400. Chest x-ray on 07/01/2021 showed bilateral COVID and the one following that several days later was worse. He did get a CT on the day before discharge because his chronic headache had started before the COVID and he said a band around the head and then the neck, dull ache, very uncomfortable with it although he does not complain much. CT luckily was normal. He was reassured he did not have a brain tumor, bleed in his head or anything horrible that he was thinking of. He was discharged home on lisinopril 10 mg a day, prednisone 40 mg x5, 20 mg x5, Prevacid 20 q.d., regular diet, Proventil inhaler 2 puffs every 4 hours PRN. He is to isolate for another seven days. He is to call me if he gets worse. However, he has really made tremendous improvement over the last five days and we are optimistic he has got this beat. I asked him to get the COVID vaccine after [employer], I have been doing that because people get so sick from it if they take it too soon after disease and they ought to have protection for a year. He is quite willing to do that. He is to see his own doctor. I gave him a list of some of the doctors in [place] to see in two weeks. PROGNOSIS: Good.
== END 2021-07-13 13:00 | disposition home or self-care (01) | DRG 177 ==
LOC: ED 18:42 → OBSVTOIN 07-04 02:07 → MED SURG 07-04 02:07
PROVIDERS: ADMIT Family Medicine; ATTEND Family Medicine
DX: U07.1 COVID-19 (principal); J12.82 Pneumonia due to coronavirus disease 2019; J96.01 Acute respiratory failure with hypoxia; G47.9 Sleep disorder, unspecified; I10 Essential (primary) hypertension; R51.9 Headache, unspecified; M54.2 Cervicalgia; Z79.899 Other long term (current) drug therapy; Z20.822 Contact with and (suspected) exposure to COVID-19
CPT/HCPCS: 36000; 36415; 70470; 71045; 80053; 81001; 83605; 84436; 84443; 84484; 85025; 85027; 85379; 85610; 93005; 93041; 94760; 94762; 96360; 96374; 96375; 99285; J1100; J1650; J1940; J2270; J2405; U0003; A9270-GY

== ENCOUNTER 2022-01-29 13:41 | Emergency (ER) | payer BC ==
[2022-01-29] MEDS ORDERED: Sodium Chloride 0.9% 1000 ML 1,000 ML IV STA (13:57)
[2022-01-29] MEDS ORDERED: TORAdol 30 mg Injection ONE (13:57)
[2022-01-29] MEDS ORDERED: TORAdol 30 mg Injection IV ONE (13:57)
[2022-01-29] MEDS ORDERED: Sodium Chloride 0.9% 1000 ML 1,000 ML ONE (13:57)
[2022-01-29] MEDS ORDERED: Zofran 4 MG/2 ML VIAL IV ONE (14:00)
[2022-01-29] MEDS ORDERED: Zofran 4 MG/2 ML VIAL ONE (14:02)
--- NOTE | 2022-01-29 14:24 | ERPHSYRPT ---
- History of Present Illness Historian: patient Exam Limitations: no limitations Patient Subjective Stated Complaint: PT states "I think I have another kidney stone, my left side is killing me." Triage Nursing Assessment: Pt presented alert and oriented X 3, skin pwd. Pt a mbulates holding his left side, slightly tachypneic, unable to sit still. Pt guarding his left side. Physician History: 61 yo wm w L flank pain/Nausea beginning at 2AM. Pain radiates to LLQ, 7/10 on scale, and described as pulsating/stabbing. He has a h/o ureterolithiasis. Dysuria/hematuria/fever/chest pain/diarrhea/melena/hematochezia are all denied. Timing/Duration: other (2AM) Activities at Onset: sleep Quality: sharpness, stabbing Abdominal Pain Onset Location: flank (L flank) Pain Radiation: LLQ Severity of Pain-Max: severe Severity of Pain-Current: moderate Modifying Factors: Improves With: nothing Associated Symptoms: back, diaphoresis, nausea, No chest pain, No diarrhea, No fever/chills, No fatigue, No headache, No heartburn, No loss of appetite, No neck pain, No rash, No shortness of breath, No syncope, No testicular pain, No vomiting, No weakness Previous symptoms: same symptoms as today Allergies/Adverse Reactions: Penicillins Allergy (Severe, Verified 03/07/20 09:58) Swelling Home Medications: Zolpidem Tartrate 10 mg [Ambien 10 MG] 10 mg PO HS PRN PRN 03/07/20 [History] Olmesartan/Hydrochlorothiazide [Olmesartan-Hctz 40-12.5 mg Tab] 1 each PO DAILY 07/01/21 [History] Phentermine HCl [Adipex-P] 0.5 tab PO BID 07/01/21 [History] Hx Tetanus, Diphtheria Vaccination/Date Given: Yes Hx Influenza Vaccination/Date Given: No Hx Pneumococcal Vaccination/Date Given: No Immunizations Up to Date: Yes Travel Risk - International Travel Have you traveled outside of the country in past 3 weeks: No - Coronavirus Screening Are you exhibiting any of the following symptoms?: No Close contact with a COVID-19 positive Pt in past 14-21 Days: No - Vaccine Status Have you recieved a Covid-19 vaccination: No - Review of Systems Constitutional: No Symptoms Eyes: No Symptoms Ears, Nose, & Throat: No Symptoms Respiratory: No Symptoms Cardiac: No Symptoms Abdominal/Gastrointestinal: No Symptoms, Other (L flank pain) Genitourinary Symptoms: Flank Pain, No Dysuria, No Frequency, No Hematuria, No Hesitancy, No Incontinence, No Urgency, No Urinary Retention, No Testicle Pain, No Penile Discharge Musculoskeletal: No Symptoms Skin: No Symptoms Neurological: No Symptoms Psychological: No Symptoms Endocrine: No Symptoms Hematologic/Lymphatic: No Symptoms Immunological/Allergic: No Symptoms - Past Medical History Pertinent Past Medical History: Yes Cardiac History: Hypertension Male Reproductive Disorders: Prostate Problems - Past Surgical History Past Surgical History: Yes Male Surgical History: Prostate Surgery Other Surgical History: left knee. prostate removed - Social History Smoking Status: Former smoker Exposure to second hand smoke: No Drug Use: none Patient Lives Alone: No - Nursing Vital Signs Nursing Vital Signs: Initial Vital Signs Temperature 97.4 F 01/29/22 13:47 Pulse Rate 63 01/29/22 13:47 Respiratory Rate 20 01/29/22 13:47 Blood Pressure 159/101 01/29/22 13:47 O2 Sat by Pulse Oximetry 98 01/29/22 13:47 Pain Scale Pain Intensity 2 - Physical Exam General Appearance: no apparent distress (In pain) Eye Exam: PERRL/EOMI Ears, Nose, Throat Exam: normal ENT inspection, TMs normal, pharynx normal, moist mucous membranes Neck Exam: normal inspection, non-tender, supple, full range of motion, No meningismus, No mass, No Brudzinski, No Kernig's Respiratory Exam: normal breath sounds, lungs clear, airway intact, No respiratory distress Cardiovascular Exam: regular rate/rhythm, normal heart sounds, normal peripheral pulses, capillary refill <2 sec, No murmur Gastrointestinal/Abdomen Exam: soft, normal bowel sounds, No tenderness Rectal Exam: deferred Back Exam: normal inspection, normal range of motion, No CVA tenderness, No vertebral tenderness Extremity Exam: normal inspection, normal range of motion Neurologic Exam: alert, oriented x 3, cooperative, dry cure worker II-XII nml as tested, normal mood/affect, nml cerebellar function, sensation nml, No nml station & ga it, No motor deficits, No sensory deficit Skin Exam: normal color Lymphatic Exam: No adenopathy SpO2 Interpretation: normal SpO2: 98 O2 Delivery: Room Air - Course Nursing assessment & vital signs reviewed: Yes - CT Exams Abdomen/Pelvis CT Interpretation: Discussed w/radiologist (4-5mm Distal L ureteral stone) Ordered Tests: Active Orders 24 hr Category Date Time Status ABDOMEN AND PELVIS W/0 CONTRAS [CT] Stat Exams 01/29/22 13:58 Completed UA W/RFX CULTURE Stat Lab 01/29/22 13:58 Results Medication Summary Discontinued Medications Generic Name Dose Route Start Last Admin Trade Name Mishel PRN Reason Stop Dose Admin Sodium Chloride 1,000 mls @ 999 mls/hr 01/29/22 13:57 01/29/22 15:07 Sodium Chloride 0.9% 1000 Ml IV 01/29/22 14:57 Infused .Q1H1M STA Infusion Sodium Chloride Confirm 01/29/22 13:57 Sodium Chloride 0.9% 1000 Ml Administered 01/29/22 13:58 Dose 1,000 mls @ ud .ROUTE .STK-MED ONE Ketorolac Tromethamine 30 mg 01/29/22 13:57 01/29/22 13:58 Ketorolac Tromethamine 30 Mg/Ml Inj IV 01/29/22 13:58 30 mg STAT ONE Administration Ketorolac Tromethamine Confirm 01/29/22 13:57 Ketorolac Tromethamine 30 Mg/Ml Inj Administered 01/29/22 13:58 Dose 30 mg .ROUTE .STK-MED ONE Ondansetron HCl 4 mg 01/29/22 14:00 01/29/22 14:04 Ondansetron Hcl 4 Mg/2 Ml Vial IV 01/29/22 14:01 4 mg STAT ONE Administration Ondansetron HCl Confirm 01/29/22 14:02 Ondansetron Hcl 4 Mg/2 Ml Vial Administered 01/29/22 14:03 Dose 4 mg .ROUTE .STK-MED ONE Lab/Rad Data: Laboratory Results 01/29/22 Range/Units 13:58 Urinalys Dipstick Clnc MAIN LAB Urine Color YELLOW (YELLOW) Urine Appearance SLIGHTLY CLOUDY (CLEAR) Urine pH 7.0 (5-6) Ur Specific [place] 1.015 (1.005-1.025) POC Urine Protein Conf NEGATIVE (Negative) Urine Ketones NEGATIVE (NEGATIVE) Urine Nitrite NEGATIVE (NEGATIVE) Urine Bilirubin NEGATIVE (NEGATIVE) Urine Urobilinogen 0.2 (0-1) mg/dL Urine Leukocytes NEGATIVE (NEGATIVE) Urine WBC (Auto) 3-5 (0-5) /HPF Urine RBC (Auto) >101 (0-2) /HPF U Epithel Cells (Auto) NONE (FEW) /HPF Urine Bacteria (Auto) Not Reportable Urine RBC LARGE (0-5) Ajs/ul Urine Mucus (Auto) SLIGHT (NEGATIVE) /HPF Ur Culture Indicated? Pending Urine Glucose NEGATIVE (NEGATIVE) mg/dL - Progress Progress: improved Progress Note: 01/29/22 14:58 30mg IV Toradol w marked inprovement in pain 1L NS bolus Counseled pt/family regarding: diagnosis, need for follow-up, rad results - Departure Departure Disposition: Home Clinical Impression: Ureterolithiasis Condition: Stable Critical Care Time: No Referrals: PATEL LEE [Primary Care Provider] - Follow up/PCP as directed Instructions: Kidney Stones (DC) Additional Instructions: Strain all urine Pain meds as needed Fluids Follow up with your urologist Return to ER for increasing pain or temperature greater than 100.5 Prescriptions: Hydrocodone/Acetaminophen [Hydrocodone-Acetamin 10-325 mg] 1 tablet PO Q4H PRN PRN #6 tablet MDD 4 tabs PRN Reason: Pain Smz/Tmp Ds Tablet [Bactrim Ds Tablet] 1 tab PO Q12H #10 tablet
[2022-01-29 14:50] LABS: Mucus SLIGHT /HPF (NEGATIVE)
[2022-01-29 15:00] LABS: Appearance SLIGHTLY CLOUDY (CLEAR)
[2022-01-29 15:01] LABS: Bilirubin NEGATIVE (NEGATIVE); Dipstick done @ ? MAIN LAB; Glucose NEGATIVE (NEGATIVE); Ketones NEGATIVE (NEGATIVE); Nitrite NEGATIVE (NEGATIVE); Protein,Urine Dip NEGATIVE (Negative); RBC LARGE Ery/ul (0-5); Specific Gravity 1.015 (1.005-1.025); Urobilinogen 0.2 mg/dL (0-1)
[2022-01-29 15:03] LABS: RBC >101 /HPF (0-2)
--- NOTE | 2022-01-29 15:07 | XRAY ---
Indication: Left flank pain. History renal stones. Multiple contiguous axial images obtained through the abdomen and pelvis without contrast using renal stone protocol. Comparison: March 07, 2020. Lung bases again demonstrates minimal fibrosis/scarring. Heart not enlarged. New 4-5 mm distal left ureter calculus approximately 2-3 cm proximal to the UVJ. Proximal left ureter minimally prominent along with minimal hydronephrosis consistent with partial obstructive uropathy. There remains again a few bilateral renal micro-calculi and small right mid renal cortical cyst. Again reported prostatectomy. Noncontrasted stomach and bowel loops appear nonobstructed. No free fluid/air. Remaining liver, gallbladder, pancreas, spleen, adrenal glands, kidneys, ureters, and bladder are unremarkable for noncontrast exam. Again mild scattered aortoiliac calcifications without AAA. Osseous structures intact again with mild degenerative changes throughout the lumbar spine. Impression: 1. New 4-5 mm distal left ureter calculus producing partial obstructive uropathy. Again additional bilateral renal micro-calculi and small right renal cyst. 2. Chronic findings including arteriosclerotic disease and lumbar degenerative changes.
[2022-01-29 15:40] VITALS: BP 147/83; PULSE 68
[2022-01-29 15:51] VITALS: O2SAT 98
[2022-01-29 23:31] LABS: Urine Cultured Indicated? YES
== END 2022-01-29 15:40 | disposition home or self-care (01) ==
LOC: ED 13:41
DX: N20.1 Calculus of ureter (principal); Z87.442 Personal history of urinary calculi; R10.32 Left lower quadrant pain; R11.0 Nausea; I10 Essential (primary) hypertension; Z79.891 Long term (current) use of opiate analgesic; Z79.899 Other long term (current) drug therapy
CPT/HCPCS: 36000; 74176; 81015; 87086; 96360; 96374; 96375; 99284; J1885; J2405

== ENCOUNTER 2022-01-30 17:37 | Emergency (ER) | payer BC ==
[2022-01-30] MEDS ORDERED: TORAdol 30 mg Injection ONE (18:13)
[2022-01-30 18:24] VITALS: O2SAT 100
[2022-01-30] MEDS ORDERED: TORAdol 30 mg Injection IV ONE (18:29)
[2022-01-30] MEDS ORDERED: MORPHINE SULFATE 4 MG INJ IV ONE (19:07)
--- NOTE | 2022-01-30 19:08 | ERPHSYRPT ---
- History of Present Illness Time Seen by Provider: 01/30/22 18:20 Source: patient Exam Limitations: no limitations Patient Subjective Stated Complaint: R sided flank pain Triage Nursing Assessment: pt to ED c/o flank pain and kidney stones. was in this ED yesterday and dx with kidney stones, recieved toradol in ED and had great pain relief. DC home with prescription for Chataignier which he stated did not help relieve pain. rates 07/07 current, "it is worse than yesterday." Physician History: Patient is a 61-year-old male presents to emergency department for evaluation of left-sided flank pain. Patient was in our ED yesterday. Patient was diagnosed with a 4 to 5 mm left kidney stone just proximal to the UVJ. Patient was discharged on Chataignier. Patient states her Chataignier is not helping. Patient received Toradol in our ED yesterday. Toradol resolved his pain. He was not discharged with Toradol. Patient did not receive Flomax. Patient's pain is identical to the pain that was present yesterday. He has had multiple kidney stones in the past. No interval trauma. No interval chest pain or shortness of breath. No nausea vomiting or diaphoresis. Symptoms are mild to moderate in intensity. No specific worsening improving factors. Patient is otherwise generally healthy. He voices no other complaints or concerns at this time. Timing/Duration: today Severity: moderate Modifying Factors: Improves With: nothing Associated Symptoms: denies symptoms, No nausea, No vomiting, No shortness of breath, No fever, No headaches, No loss of appetite, No syncope, No seizure, No weakness Allergies/Adverse Reactions: Penicillins Allergy (Severe, Verified 03/07/20 09:58) Swelling Home Medications: Zolpidem Tartrate 10 mg [Ambien 10 MG] 10 mg PO HS PRN PRN 03/07/20 [History] Olmesartan/Hydrochlorothiazide [Olmesartan-Hctz 40-12.5 mg Tab] 1 each PO DAILY 07/01/21 [History] Phentermine HCl [Adipex-P] 0.5 tab PO BID 07/01/21 [History] Hx Tetanus, Diphtheria Vaccination/Date Given: Yes Hx Influenza Vaccination/Date Given: Yes Hx Pneumococcal Vaccination/Date Given: No Immunizations Up to Date: Yes Travel Risk - International Travel Have you traveled outside of the country in past 3 weeks: No - Coronavirus Screening Are you exhibiting any of the following symptoms?: No Close contact with a COVID-19 positive Pt in past 14-21 Days: No - Vaccine Status Have you recieved a Covid-19 vaccination: No - Review of Systems Constitutional: No Symptoms, No Fever, No Chills Eyes: No Symptoms Ears, Nose, & Throat: No Symptoms Respiratory: No Symptoms, No Cough, No Dyspnea Cardiac: No Symptoms, No Chest Pain, No Edema, No Syncope Abdominal/Gastrointestinal: No Symptoms, No Abdominal Pain, No Nausea, No Vomiting, No Diarrhea Genitourinary Symptoms: No Symptoms, No Dysuria Musculoskeletal: No Symptoms, No Back Pain, No Neck Pain Skin: No Symptoms, No Rash Neurological: No Symptoms, No Dizziness, No Focal Weakness, No Sensory Changes Psychological: No Symptoms Endocrine: No Symptoms Hematologic/Lymphatic: No Symptoms Immunological/Allergic: No Symptoms All Other Systems: Reviewed and Negative - Past Medical History Pertinent Past Medical History: Yes Cardiac History: Hypertension Male Reproductive Disorders: Prostate Problems - Past Surgical History Past Surgical History: Yes Male Surgical History: Prostate Surgery Other Surgical History: left knee. prostate removed - Social History Smoking Status: Former smoker Exposure to second hand smoke: No Drug Use: none Patient Lives Alone: No - Nursing Vital Signs Nursing Vital Signs: Initial Vital Signs Temperature 97.5 F 01/30/22 18:17 Pulse Rate 74 01/30/22 18:17 Respiratory Rate 25 H 01/30/22 18:17 Blood Pressure 180/108 01/30/22 18:17 O2 Sat by Pulse Oximetry 100 01/30/22 18:17 Pain Scale Pain Intensity 10 - Physical Exam General Appearance: no apparent distress, alert Eye Exam: PERRL/EOMI, eyes nml inspection Ears, Nose, Throat Exam: normal ENT inspection, TMs normal, pharynx normal, moist mucous membranes Neck Exam: normal inspection, non-tender, supple, full range of motion Respiratory Exam: normal breath sounds, lungs clear, airway intact, No respiratory distress Cardiovascular Exam: regular rate/rhythm, normal heart sounds, normal peripheral pulses Gastrointestinal/Abdomen Exam: soft, normal bowel sounds, other (Left-sided flank pain. Mild CVA tenderness), No tenderness, No mass Back Exam: normal inspection, normal range of motion, No CVA tenderness, No vertebral tenderness Extremity Exam: normal inspection, normal range of motion, pelvis stable Neurologic Exam: alert, oriented x 3, cooperative, normal mood/affect, nml cerebellar function, nml station & gait, sensation nml, No motor deficits Skin Exam: normal color, warm, dry, No rash Lymphatic Exam: No adenopathy SpO2: 100 - Course Nursing assessment & vital signs reviewed: Yes Ordered Tests: Medication Summary Generic Name Dose Route Start Last Admin Trade Name Freq PRN Reason Stop Dose Admin Tamsulosin HCl 0.4 mg 01/31/22 10:00 Tamsulosin Hcl 0.4 Mg Cap PO 03/02/22 09:59 DAILY YANCI Discontinued Medications Generic Name Dose Route Start Last Admin Trade Name Freq PRN Reason Stop Dose Admin Ketorolac Tromethamine Confirm 01/30/22 18:13 Ketorolac Tromethamine 30 Mg/Ml Inj Administered 01/30/22 18:14 Dose 30 mg .ROUTE .STK-MED ONE Ketorolac Tromethamine 30 mg 01/30/22 18:29 01/30/22 18:30 Ketorolac Tromethamine 30 Mg/Ml Inj IV 01/30/22 18:30 30 mg STAT ONE Administration Morphine Sulfate 4 mg 01/30/22 19:07 Morphine Sulfate 4 Mg/Ml Injection IV 01/30/22 19:08 STAT ONE - Progress Progress: improved Progress Note: Case discussed with Dr. Lee. Patient understands that if his kidney stone does not pass he will require urological consult. Per Dr. Lee we do not have urology available in our hospital. Since patient was not discharged with Toradol and Toradol helped his pain yesterday we will try a prescription of Toradol along with Flomax. Patient states if pain continues he will follow-up with his urologist or at a hospital with on-call urology. Patient given a dose of morphine in our ED in addition to the Toradol that was given to him. Patient is comfortable. Patient now requesting discharge. Patient has a ride home. He voices no other complaints or concerns at this time. Portions of this note were created with voice recognition technology. There may be grammatical, spelling, punctuation or sound alike errors 01/30/22 19:14 Patient given a referral to Dr. Storey [facility] Portions of this note were created with voice recognition technology. There may be grammatical, spelling, punctuation or sound alike errors. 01/30/22 19:[address] Karl Will see patient in: office Counseled pt/family regarding: lab results, diagnosis, rad results - Departure Departure Disposition: Home Clinical Impression: Ureterolithiasis, Renal colic Condition: Stable Critical Care Time: No Referrals: PATEL LEE [Primary Care Provider] - Follow up/PCP as directed MARTIN STOREY [COURTESY STAFF] - Follow up/PCP as directed Additional Instructions: Discharge/Care Plan KAMALJIT DAVIS,ED AMI was seen on 01/30/22 in the Emergency Room. The patient was counseled regarding Diagnosis,Lab results, Imaging studies, need for follow up and when to return to the Emergency Room. Prescriptions given: Discharge Note I have spoken with the patient and/or caregivers. I have explained the patient's condition, diagnosis and treatment plan based on the information available to me at this time. I have answered the patient's and/or caregiver's questions and addressed any concerns. The patient and/or caregivers have as good understanding of the patient's diagnosis, condition and treatment plan as can be expected at this point. The vital signs have been stable. The patient's condition is stable and appropriate for discharge from the emergency department. The patient will pursue further outpatient evaluation with the primary care physician or other designated or consulting physician as outlined in the discharge instructions. The patient and/or caregivers are agreeable to this plan of care and follow-up instructions have been explained in detail. The patient and/or caregivers have received these instruction. The patient/and or caregivers are aware that any significant change in condition or worsening of symptoms should prompt an immediate return to this or the closest emergency department or call 911. Prescriptions: Tamsulosin HCl 0.4 mg [Flomax 0.4 MG] 0.4 mg PO DAILY 14 Days #14 cap
[2022-01-30] MEDS ORDERED: Flomax 0.4 MG ONE (19:16)
[2022-01-30] MEDS ORDERED: MORPHINE SULFATE 4 MG INJ ONE (19:16)
[2022-01-30 19:39] VITALS: BP 166/74; PULSE 78
[2022-01-31] MEDS ORDERED: Flomax 0.4 MG PO SCH (10:00)
== END 2022-01-30 19:41 | disposition home or self-care (01) ==
LOC: ED 17:37
DX: N20.1 Calculus of ureter (principal); N23 Unspecified renal colic; Z87.442 Personal history of urinary calculi; I10 Essential (primary) hypertension; Z79.899 Other long term (current) drug therapy
CPT/HCPCS: 96374; 96375; 99284; J1885; J2270; A9270-GY

== ENCOUNTER 2024-01-27 08:09 | Day surgery (SDC) | payer OTHER ==
[2024-01-27] MEDS: Lactated Ringers 1,000 ML IV SCH (08:17)
[2024-01-27 08:23] VITALS: BP 145/86; PULSE 66; RESP 18; TEMP 97; O2SAT 97
== END 2024-01-27 08:39 | disposition home or self-care (01) ==
LOC: SDC 08:09
PROVIDERS: ATTEND Orthopaedic Surgery
DX: Z53.8 Procedure and treatment not carried out for other reasons (principal)

== ENCOUNTER 2024-02-01 06:39 | Day surgery (SDC) | payer OTHER ==
[2024-02-01] MEDS: Lactated Ringers 1,000 ML IV SCH (06:56)
[2024-02-01] MEDS ORDERED: Marcaine 0.5%/Epinephrine 10 ML ONE ×2 (08:05→08:38)
[2024-02-01] MEDS ORDERED: ROCURONIUM BROMIDE IV ONE (08:15)
[2024-02-01] MEDS: CLINDAMYCIN-D5W 900 MG/50 ML*** 900 MG/50 ML BAG IV ONE (08:15)
[2024-02-01] MEDS ORDERED: DIPRIVAN 200 MG/20 ML IV ONE (08:16)
[2024-02-01] MEDS ORDERED: Versed 2 MG/2 ML Injection ONE (08:16)
[2024-02-01] MEDS ORDERED: SUBLIMAZE 100 MCG/2 ML ONE ×3 (08:16→09:54)
[2024-02-01] MEDS ORDERED: Xylocaine-Mpf 2% 5 Ml Vial ONE (08:29)
[2024-02-01] MEDS ORDERED: BRIDION 200MG/2ML IV ONE (09:13)
[2024-02-01] MEDS ORDERED: TORAdol 30 mg Injection ONE (09:13)
[2024-02-01] MEDS ORDERED: Lactated Ringers 1,000 ML IV ONE (09:16)
--- NOTE | 2024-02-01 10:40 | OP ---
SURGERY DATE/TIME: 02/01/2024 0830 PREOPERATIVE DIAGNOSES: 1) Torn right medial meniscus. 2) Chrondromalacia patella. POSTOPERATIVE DIAGNOSES: 1) Torn right medial meniscus. 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 PROCEDURE: Arthroscopy of the right knee with partial medial meniscectomy and limited chondroplasty patella and medial femoral condyle. SURGEON: Shine Bejarano II, D.O. GENERAL: General. DESCRIPTION OF PROCEDURE: The patient identified and informed consent obtained. The patient is taken to the operative suite where a general anesthetic is administered. Once an appropriate level of anesthesia had been obtained, the tourniquet is placed high on the right thigh and the right lower extremity was then prepped and draped in the usual sterile fashion. A standard time out was taken. Following this, the leg exsanguinated and tourniquet elevated to 350 mm of Mercury. An infralateral portal is created with an 11 blade, trocar and cannula were then placed in the joint. The joint then distended with the arthroscopic pump. A medial portal created with an 11 blade after identifying the level with an 18 gauge spinal needle. The knee then inspected in a systematic fashion beginning in the suprapatellar pouch where there were no loose bodies or synovial hypertrophy. The undersurface of the patella had some very minimal degenerative thinning and chondromalacia and a very limited chondroplasty was performed of the loose tissue. The trocar groove had no significant chondromalacia changes. The gutters were inspected and no loose bodies or synovial hypertrophy. Intercondylar notch region was inspected and the anterior cruciate ligament was noted to be intact. The scope was placed into the lateral compartment. The lateral meniscus is probed throughout its entirety and noted to be intact. The scope is then placed into the medial compartment where there was noted to be a tear of the posterior horn of the medial meniscus this is a radial-type tear, resected with handheld biting instruments and shaved to a smooth transition with a shaver. There was some chondromalacia noted on the medial femoral condyle and this was shaved with 4-0 radial shaver as well to a good smooth transition. The knee was then re-inspected and copiously irrigated and no further pathology was identified. The instrumentation was removed. The portal sites were closed with interrupted 4-0 Nylon suture. The knee was then infiltrated with 30 cc of 0.25% Marcaine with epinephrine into the joint and portal sites. Adaptic, 4x4 and a standard postoperative arthroscopy dressing applied. The patient was then transferred to the cart and taken to the recovery room in satisfactory condition and he tolerated the procedure well.
[2024-02-01 10:41] VITALS: PULSE 50
[2024-02-01 11:09] VITALS: RESP 18; O2SAT 98
[2024-02-01 11:37] VITALS: BP 136/82; TEMP 96.7
== END 2024-02-01 11:40 | disposition home or self-care (01) ==
LOC: SDC 06:39
PROVIDERS: ATTEND Orthopaedic Surgery
DX: S83.241A Other tear of medial meniscus, current injury, right knee, initial encounter (principal); M22.41 Chondromalacia patellae, right knee
CPT/HCPCS: 29881; 29999; J1885; J2250; J2704; J3010